=== PATIENT | male | born 1960 | race Caucasian/White ===

== ENCOUNTER 2020-09-26 09:43 | Inpatient (IN) ==
[2020-09-26] MEDS ORDERED: ALBUTEROL/IPRATROPIUM 3 ML NEB RESP TX STA (09:56)
[2020-09-26] MEDS ORDERED: FUROSEMIDE 40 MG/4 ML VIAL IV STA (09:56)
[2020-09-26] MEDS ORDERED: methylPREDNISolone SOD SUC 125 MG/2 ML VIAL IV STA (09:56)
[2020-09-26] MEDS ORDERED: cefTRIAXone 1,000 MG in SODIUM CHLORIDE 0.9% 100 ML IV STA (09:56)
[2020-09-26] MEDS ORDERED: cefTRIAXone 1,000 MG in SYRINGE 1 EACH IV STA (09:59)
[2020-09-26 10:22] LABS: ABG Base Excess 2.6 MMOL/L (-2.5-2.5); ABG HCO3 26.4 MMOL/L (20-26); ABG Oxygen Saturation 85.4 % (95-100); ABG PCO2 35.1 MM HG (35-48); ABG PH 7.474 (7.35-7.45); ABG PO2 53.1 MM HG (80-95); ABG TCO2 22.6 MMOL/L (23-27)
[2020-09-26 10:26] LABS: Basophils % 0.2 % (0.0-0.8); Hematocrit 34.2 VOL% (42.0-52.0); Hemoglobin 12.4 GM/DL (14.0-18.0); Immature Granulocytes Absolute 0.09 #; Lymphocytes # 0.3 10*3/uL (1.4-4.0); Lymphocytes % 3.4 % (21.2-54.2); Mean Corpuscular HGB Conc 36.3 GM/DL (32-36); Mean Corpuscular Volume 93.4 FL (87-102); Mean Platelet Volume 10.5 FL (9.6-12.0); Monocytes % 0.8 % (1.7-12.7); Neutrophils % 94.6 % (38.7-73.9); Platelet Count 149 T/CUMM (130-400); Red Blood Count 3.66 MC/CUMM (3.8-5.5); Red Cell Distribution Width 11.8 % (9.3-17.3); White Blood Count 8.6 T/CUMM (4-12)
[2020-09-26 10:36] LABS: INR 1.2; PT Patient Result 12.8 SECS (9.8-11.9)
[2020-09-26] MEDS ORDERED: SODIUM CHLORIDE 0.9% 100 ML IV ONE ×2 (10:39→10:48)
[2020-09-26 10:46] LABS: Anisocytosis 2+; Band Neutrophils 4 % (0-10); Lymphocytes 3 % (20-55); Macrocytosis 1+; Microcytosis 1+; Platelet Estimate Adequate; Segmented Neutrophils 90 % (50-85); Total Cells Counted 100
[2020-09-26 10:49] LABS: Albumin 2.1 G/DL (3.4-5.0); Bilirubin,Total 0.9 MG/DL (0.2-1.0); Calcium 7.7 MG/DL (8.5-10.1); Osmolality,Calculated 261.1 MOS/KG (273-304); Potassium 2.6 MMOL/L (3.5-5.1); Total Protein 5.7 G/DL (6.4-8.3)
[2020-09-26 10:59] LABS: Ferritin 1642.2 ng/ml (26-388)
[2020-09-26] MEDS ORDERED: ONDANSETRON 4 MG/2 ML VIAL IV PRN (12:54)
[2020-09-26] MEDS ORDERED: DEXTROSE 50% 25 GM/50 ML VIAL IV PRN (12:54)
[2020-09-26] MEDS ORDERED: GLUCAGON 1 MG VIAL IM PRN (12:54)
[2020-09-26] MEDS: FAMOTIDINE 20 MG/2 ML VIAL IV SCH (15:36)
[2020-09-26] MEDS: DEXAMETHASONE 4 MG/1 ML VIAL IV SCH (15:36)
[2020-09-26] MEDS: ZINC GLUCONATE 50 MG TABLET PO SCH (15:36)
[2020-09-26] MEDS: POTASSIUM CHLORIDE 20 MEQ TABLET PO PRN ×4 (15:36→21:18)
[2020-09-26] MEDS: ALBUTEROL INHALER 18 GM INH SCH (20:56)
[2020-09-26] MEDS: ENOXAPARIN 40 MG/0.4 ML SYRINGE SUBCUT SCH (21:17)
[2020-09-26] MEDS: DOXYCYCLINE HYCLATE 100 MG CAPSULE PO SCH (21:18)
[2020-09-26] MEDS: ASCORBIC ACID 500 MG TABLET PO SCH (21:18)
[2020-09-27] MEDS: FAMOTIDINE 20 MG/2 ML VIAL IV SCH ×2 (01:45→13:35)
[2020-09-27] MEDS: ALBUTEROL INHALER 18 GM INH SCH ×5 (02:09→20:43)
[2020-09-27 07:22] LABS: Basophils % 0.3 % (0.0-0.8); Hematocrit 34.5 VOL% (42.0-52.0); Hemoglobin 12.6 GM/DL (14.0-18.0); Immature Granulocytes % 0.4 %; Immature Granulocytes Absolute 0.03 #; Lymphocytes # 0.4 10*3/uL (1.4-4.0); Lymphocytes % 5.9 % (21.2-54.2); Mean Corpuscular HGB Conc 36.5 GM/DL (32-36); Mean Corpuscular Volume 93.8 FL (87-102); Mean Platelet Volume 10.9 FL (9.6-12.0); Monocytes % 0.9 % (1.7-12.7); Neutrophils % 92.5 % (38.7-73.9); Platelet Count 169 T/CUMM (130-400); Red Blood Count 3.68 MC/CUMM (3.8-5.5); Red Cell Distribution Width 11.9 % (9.3-17.3); White Blood Count 6.8 T/CUMM (4-12)
[2020-09-27 07:51] LABS: Band Neutrophils 1 % (0-10); Lymphocytes 4 % (20-55); Platelet Estimate Normal; Segmented Neutrophils 95 % (50-85); Total Cells Counted 100
[2020-09-27 07:57] LABS: Calcium 8.8 MG/DL (8.5-10.1); Osmolality,Calculated 267.5 MOS/KG (273-304); Potassium 4.3 MMOL/L (3.5-5.1)
[2020-09-27] MEDS: ASCORBIC ACID 500 MG TABLET PO SCH ×2 (08:33→21:15)
[2020-09-27] MEDS: ZINC GLUCONATE 50 MG TABLET PO SCH (08:33)
[2020-09-27] MEDS: cefTRIAXone 1,000 MG in SYRINGE 1 EACH IV SCH (08:33)
[2020-09-27] MEDS: FOLIC ACID 1 MG TABLET PO SCH (08:33)
[2020-09-27] MEDS: DOXYCYCLINE HYCLATE 100 MG CAPSULE PO SCH ×2 (08:33→21:14)
[2020-09-27] MEDS: THIAMINE 100 MG TABLET PO SCH (08:33)
[2020-09-27] MEDS ORDERED: REMDESIVIR 200 MG in SODIUM CHLORIDE 0.9% 210 ML IV ONE (09:00)
[2020-09-27 09:13] LABS: Troponin I 0.132 NG/ML (0.00-0.045)
[2020-09-27] MEDS: DEXAMETHASONE 4 MG/1 ML VIAL IV SCH (13:35)
[2020-09-27] MEDS: amLODIPine 5 MG TABLET PO SCH (13:35)
[2020-09-27] MEDS: ENOXAPARIN 40 MG/0.4 ML SYRINGE SUBCUT SCH (21:14)
[2020-09-27] MEDS: ACETAMINOPHEN 325 MG TABLET PO PRN (21:15)
[2020-09-28] MEDS: ALBUTEROL INHALER 18 GM INH SCH ×4 (01:09→19:01)
[2020-09-28] MEDS: FAMOTIDINE 20 MG/2 ML VIAL IV SCH ×2 (01:10→13:15)
[2020-09-28 07:01] LABS: Basophils % 0.4 % (0.0-0.8); Hemoglobin 12.9 GM/DL (14.0-18.0); Immature Granulocytes % 0.9 %; Immature Granulocytes Absolute 0.06 #; Lymphocytes # 0.4 10*3/uL (1.4-4.0); Lymphocytes % 5.6 % (21.2-54.2); Mean Corpuscular HGB Conc 35.8 GM/DL (32-36); Mean Platelet Volume 10.4 FL (9.6-12.0); Monocytes % 0.7 % (1.7-12.7); Neutrophils % 92.4 % (38.7-73.9); Red Blood Count 3.79 MC/CUMM (3.8-5.5); Red Cell Distribution Width 12.1 % (9.3-17.3); White Blood Count 6.8 T/CUMM (4-12)
[2020-09-28 07:02] LABS: Platelet Count 228 T/CUMM (130-400)
[2020-09-28 07:11] LABS: Calcium 8.3 MG/DL (8.5-10.1); Osmolality,Calculated 264.7 MOS/KG (273-304)
[2020-09-28 07:13] LABS: Hypochromasia Slight; Lymphocytes 8 % (20-55); Platelet Estimate Adequate; Segmented Neutrophils 91 % (50-85); Total Cells Counted 100
[2020-09-28 07:15] LABS: Troponin I 0.05 NG/ML (0.00-0.045)
[2020-09-28] MEDS: FOLIC ACID 1 MG TABLET PO SCH (08:00)
[2020-09-28] MEDS: amLODIPine 5 MG TABLET PO SCH (08:00)
[2020-09-28] MEDS: ZINC GLUCONATE 50 MG TABLET PO SCH (08:00)
[2020-09-28] MEDS: ASCORBIC ACID 500 MG TABLET PO SCH ×2 (08:00→22:01)
[2020-09-28] MEDS: cefTRIAXone 1,000 MG in SYRINGE 1 EACH IV SCH (08:00)
[2020-09-28] MEDS: DOXYCYCLINE HYCLATE 100 MG CAPSULE PO SCH ×2 (08:00→22:00)
[2020-09-28] MEDS: THIAMINE 100 MG TABLET PO SCH (08:01)
[2020-09-28] MEDS: REMDESIVIR 100 MG in SODIUM CHLORIDE 0.9% 100 ML IV SCH (09:12)
[2020-09-28] MEDS: DEXAMETHASONE 4 MG/1 ML VIAL IV SCH (13:15)
[2020-09-28] MEDS ORDERED: amLODIPine 5 MG TABLET PO ONE (13:33)
[2020-09-28] MEDS: ENOXAPARIN 40 MG/0.4 ML SYRINGE SUBCUT SCH (22:00)
[2020-09-29] MEDS: FAMOTIDINE 20 MG/2 ML VIAL IV SCH (02:34)
[2020-09-29] MEDS: ALBUTEROL INHALER 18 GM INH SCH ×4 (02:34→19:15)
[2020-09-29 05:49] LABS: Basophils % 0.2 % (0.0-0.8); Eosinophils % 0.2 % (0.00-10.9); Hematocrit 37.2 VOL% (42.0-52.0); Hemoglobin 12.4 GM/DL (14.0-18.0); Immature Granulocytes % 0.7 %; Immature Granulocytes Absolute 0.03 #; Lymphocytes # 0.4 10*3/uL (1.4-4.0); Lymphocytes % 7.7 % (21.2-54.2); Mean Corpuscular HGB Conc 33.3 GM/DL (32-36); Mean Corpuscular Volume 99.2 FL (87-102); Mean Platelet Volume 10.5 FL (9.6-12.0); Monocytes % 0.7 % (1.7-12.7); Neutrophils % 90.5 % (38.7-73.9); Platelet Count 181 T/CUMM (130-400); Red Blood Count 3.75 MC/CUMM (3.8-5.5); Red Cell Distribution Width 12.1 % (9.3-17.3); White Blood Count 4.5 T/CUMM (4-12)
[2020-09-29 06:23] LABS: Band Neutrophils 10 % (0-10); Hypochromasia 1+; Lymphocytes 5 % (20-55); Microcytosis 1+; Segmented Neutrophils 83 % (50-85); Total Cells Counted 100
[2020-09-29 06:24] LABS: Platelet Estimate Adequate
[2020-09-29 06:38] LABS: Calcium 7.9 MG/DL (8.5-10.1); Potassium 3.8 MMOL/L (3.5-5.1)
[2020-09-29] MEDS ORDERED: LORazepam 2 MG/1 ML VIAL IV PRN (09:47)
[2020-09-29] MEDS: THIAMINE 100 MG TABLET PO SCH (09:52)
[2020-09-29] MEDS: ZINC GLUCONATE 50 MG TABLET PO SCH (09:52)
[2020-09-29] MEDS: FOLIC ACID 1 MG TABLET PO SCH (09:52)
[2020-09-29] MEDS: REMDESIVIR 100 MG in SODIUM CHLORIDE 0.9% 100 ML IV SCH (09:52)
[2020-09-29] MEDS: cefTRIAXone 1,000 MG in SYRINGE 1 EACH IV SCH (09:52)
[2020-09-29] MEDS: ASCORBIC ACID 500 MG TABLET PO SCH ×2 (09:52→20:17)
[2020-09-29] MEDS: amLODIPine 10 MG TABLET PO SCH (09:52)
[2020-09-29] MEDS: DOXYCYCLINE HYCLATE 100 MG CAPSULE PO SCH ×2 (09:52→20:17)
[2020-09-29] MEDS ORDERED: VANCOMYCIN INJ 1,250 MG in SODIUM CHLORIDE 0.9% 250 ML IV SCH (11:00)
[2020-09-29] MEDS: DEXAMETHASONE 4 MG/1 ML VIAL IV SCH (15:01)
[2020-09-29] MEDS: FAMOTIDINE 20 MG TABLET PO SCH (20:17)
[2020-09-29] MEDS: ENOXAPARIN 40 MG/0.4 ML SYRINGE SUBCUT SCH (20:17)
[2020-09-29] MEDS ORDERED: ZALEPLON 5 MG CAPSULE PO PRN (21:02)
[2020-09-30] MEDS: ALBUTEROL INHALER 18 GM INH SCH ×4 (00:15→18:29)
[2020-09-30 05:49] LABS: Basophils % 0.3 % (0.0-0.8); Hematocrit 35.8 VOL% (42.0-52.0); Hemoglobin 12.5 GM/DL (14.0-18.0); Immature Granulocytes % 0.5 %; Immature Granulocytes Absolute 0.02 #; Lymphocytes # 0.3 10*3/uL (1.4-4.0); Lymphocytes % 6.7 % (21.2-54.2); Mean Corpuscular HGB Conc 34.9 GM/DL (32-36); Mean Corpuscular Volume 97.5 FL (87-102); Mean Platelet Volume 10.7 FL (9.6-12.0); Monocytes % 0.8 % (1.7-12.7); Neutrophils % 91.7 % (38.7-73.9); Platelet Count 150 T/CUMM (130-400); Red Blood Count 3.67 MC/CUMM (3.8-5.5); Red Cell Distribution Width 11.9 % (9.3-17.3); White Blood Count 3.7 T/CUMM (4-12)
[2020-09-30 06:05] LABS: Albumin 1.8 G/DL (3.4-5.0); Bilirubin,Total 1.2 MG/DL (0.2-1.0); Calcium 7.9 MG/DL (8.5-10.1); Osmolality,Calculated 269.2 MOS/KG (273-304); Potassium 3.8 MMOL/L (3.5-5.1); Total Protein 6.2 G/DL (6.4-8.3)
[2020-09-30 06:30] LABS: Band Neutrophils 7 % (0-10); Hypochromasia 1+; Lymphocytes 3 % (20-55); Macrocytosis Slight; Platelet Estimate Adequate; Segmented Neutrophils 89 % (50-85); Total Cells Counted 100
[2020-09-30] MEDS: methylPREDNISolone SOD SUC 40 MG/1 ML VIAL IV SCH ×2 (09:01→16:06)
[2020-09-30] MEDS: LACTULOSE 20 GM/30 ML UDCUP PO SCH ×2 (09:01→09:25)
[2020-09-30] MEDS: cefTRIAXone 1,000 MG in SYRINGE 1 EACH IV SCH (09:01)
[2020-09-30] MEDS: ZINC GLUCONATE 50 MG TABLET PO SCH (09:02)
[2020-09-30] MEDS: THIAMINE 100 MG TABLET PO SCH (09:02)
[2020-09-30] MEDS: FOLIC ACID 1 MG TABLET PO SCH (09:02)
[2020-09-30] MEDS: ASCORBIC ACID 500 MG TABLET PO SCH ×2 (09:02→20:43)
[2020-09-30] MEDS: MULTIVITAMIN (BEROCCA) TABLET PO SCH (09:02)
[2020-09-30] MEDS: DOXYCYCLINE HYCLATE 100 MG CAPSULE PO SCH ×2 (09:02→20:43)
[2020-09-30] MEDS: FAMOTIDINE 20 MG TABLET PO SCH ×2 (09:02→20:43)
[2020-09-30] MEDS: amLODIPine 10 MG TABLET PO SCH (09:02)
[2020-09-30] MEDS: REMDESIVIR 100 MG in SODIUM CHLORIDE 0.9% 100 ML IV SCH (09:33)
[2020-09-30] MEDS: ENOXAPARIN 40 MG/0.4 ML SYRINGE SUBCUT SCH (20:43)
[2020-10-01] MEDS: methylPREDNISolone SOD SUC 40 MG/1 ML VIAL IV SCH ×4 (00:50→22:35)
[2020-10-01] MEDS: ALBUTEROL INHALER 18 GM INH SCH ×4 (00:50→19:05)
[2020-10-01] MEDS: cefTRIAXone 1,000 MG in SYRINGE 1 EACH IV SCH (08:14)
[2020-10-01] MEDS: ZINC GLUCONATE 50 MG TABLET PO SCH (08:15)
[2020-10-01] MEDS: LACTULOSE 20 GM/30 ML UDCUP PO SCH ×2 (08:15→13:52)
[2020-10-01] MEDS: DOXYCYCLINE HYCLATE 100 MG CAPSULE PO SCH (08:15)
[2020-10-01] MEDS: THIAMINE 100 MG TABLET PO SCH (08:15)
[2020-10-01] MEDS: MULTIVITAMIN (BEROCCA) TABLET PO SCH (08:15)
[2020-10-01] MEDS: FOLIC ACID 1 MG TABLET PO SCH (08:15)
[2020-10-01] MEDS: FAMOTIDINE 20 MG TABLET PO SCH ×2 (08:15→20:24)
[2020-10-01] MEDS: ASCORBIC ACID 500 MG TABLET PO SCH ×2 (08:15→20:24)
[2020-10-01] MEDS: amLODIPine 10 MG TABLET PO SCH (08:15)
[2020-10-01] MEDS: REMDESIVIR 100 MG in SODIUM CHLORIDE 0.9% 100 ML IV SCH (08:17)
[2020-10-01] MEDS: ENOXAPARIN 40 MG/0.4 ML SYRINGE SUBCUT SCH (20:23)
[2020-10-01] MEDS: diphenhydrAMINE CAP 25 MG CAPSULE PO PRN (20:24)
[2020-10-01] MEDS: MELATONIN 3 MG TABLET PO PRN (20:24)
[2020-10-02] MEDS: ALBUTEROL INHALER 18 GM INH SCH ×4 (00:05→20:04)
[2020-10-02 05:40] LABS: Basophils % 0.5 % (0.0-0.8); Hematocrit 36.4 VOL% (42.0-52.0); Hemoglobin 12.6 GM/DL (14.0-18.0); Immature Granulocytes % 0.7 %; Immature Granulocytes Absolute 0.04 #; Lymphocytes # 0.3 10*3/uL (1.4-4.0); Lymphocytes % 4.7 % (21.2-54.2); Mean Corpuscular HGB Conc 34.6 GM/DL (32-36); Mean Corpuscular Volume 97.1 FL (87-102); Mean Platelet Volume 10.7 FL (9.6-12.0); Monocytes % 0.8 % (1.7-12.7); Neutrophils % 93.3 % (38.7-73.9); Platelet Count 147 T/CUMM (130-400); Red Blood Count 3.75 MC/CUMM (3.8-5.5); Red Cell Distribution Width 12.1 % (9.3-17.3)
[2020-10-02 05:53] LABS: Calcium 7.9 MG/DL (8.5-10.1); Ferritin 911.2 ng/ml (26-388); Osmolality,Calculated 276.1 MOS/KG (273-304)
[2020-10-02 06:11] LABS: Band Neutrophils 3 % (0-10); Hypochromasia 1+; Lymphocytes 2 % (20-55); Macrocytosis Slight; Platelet Estimate Adequate; Segmented Neutrophils 94 % (50-85); Total Cells Counted 100
[2020-10-02] MEDS: ASCORBIC ACID 500 MG TABLET PO SCH ×2 (08:11→20:05)
[2020-10-02] MEDS: FAMOTIDINE 20 MG TABLET PO SCH ×2 (08:11→20:05)
[2020-10-02] MEDS: THIAMINE 100 MG TABLET PO SCH (08:11)
[2020-10-02] MEDS: amLODIPine 10 MG TABLET PO SCH (08:11)
[2020-10-02] MEDS: MULTIVITAMIN (BEROCCA) TABLET PO SCH (08:11)
[2020-10-02] MEDS: FOLIC ACID 1 MG TABLET PO SCH (08:12)
[2020-10-02] MEDS: ZINC GLUCONATE 50 MG TABLET PO SCH (08:12)
[2020-10-02] MEDS: LACTULOSE 20 GM/30 ML UDCUP PO SCH (08:58)
[2020-10-02] MEDS: ENOXAPARIN 40 MG/0.4 ML SYRINGE SUBCUT SCH ×2 (09:21→20:04)
[2020-10-02] MEDS: methylPREDNISolone SOD SUC 40 MG/1 ML VIAL IV SCH ×2 (09:21→20:04)
[2020-10-02] MEDS: MELATONIN 3 MG TABLET PO PRN (20:05)
[2020-10-02] MEDS: diphenhydrAMINE CAP 25 MG CAPSULE PO PRN (20:05)
[2020-10-03] MEDS: ALBUTEROL INHALER 18 GM INH SCH ×4 (01:25→19:20)
[2020-10-03 06:28] LABS: Osmolality,Calculated 271.2 MOS/KG (273-304); Potassium 4.4 MMOL/L (3.5-5.1)
[2020-10-03] MEDS: ENOXAPARIN 40 MG/0.4 ML SYRINGE SUBCUT SCH (08:49)
[2020-10-03] MEDS: amLODIPine 10 MG TABLET PO SCH (08:50)
[2020-10-03] MEDS: ASCORBIC ACID 500 MG TABLET PO SCH ×2 (08:50→20:40)
[2020-10-03] MEDS: methylPREDNISolone SOD SUC 40 MG/1 ML VIAL IV SCH ×2 (08:50→20:40)
[2020-10-03] MEDS: FAMOTIDINE 20 MG TABLET PO SCH ×2 (08:50→20:40)
[2020-10-03] MEDS: MULTIVITAMIN (BEROCCA) TABLET PO SCH (08:50)
[2020-10-03] MEDS: FOLIC ACID 1 MG TABLET PO SCH (08:51)
[2020-10-03] MEDS: ZINC GLUCONATE 50 MG TABLET PO SCH (08:51)
[2020-10-03] MEDS: THIAMINE 100 MG TABLET PO SCH (08:52)
[2020-10-03] MEDS: LACTULOSE 20 GM/30 ML UDCUP PO SCH (09:25)
[2020-10-03] MEDS ORDERED: ENOXAPARIN 80 MG/0.8 ML SYRINGE SUBCUT SCH (10:00)
[2020-10-03] MEDS ORDERED: ENOXAPARIN 40 MG/0.4 ML SYRINGE SUBCUT ONE (10:34)
[2020-10-03] MEDS: ENOXAPARIN 80 MG/0.8 ML SYRINGE SUBCUT SCH (21:02)
[2020-10-04] MEDS: ALBUTEROL INHALER 18 GM INH SCH ×4 (00:12→19:49)
[2020-10-04 04:13] LABS: Basophils % 0.1 % (0.0-0.8); Hematocrit 33.9 VOL% (42.0-52.0); Hemoglobin 11.5 GM/DL (14.0-18.0); Immature Granulocytes % 2.7 %; Immature Granulocytes Absolute 0.24 #; Lymphocytes # 0.3 10*3/uL (1.4-4.0); Lymphocytes % 3.4 % (21.2-54.2); Mean Corpuscular HGB Conc 33.9 GM/DL (32-36); Mean Corpuscular Volume 96.9 FL (87-102); Mean Platelet Volume 10.4 FL (9.6-12.0); Monocytes % 0.3 % (1.7-12.7); Neutrophils % 93.5 % (38.7-73.9); Platelet Count 171 T/CUMM (130-400); Red Cell Distribution Width 12.1 % (9.3-17.3)
[2020-10-04 04:40] LABS: Albumin 1.7 G/DL (3.4-5.0); Bilirubin,Total 0.4 MG/DL (0.2-1.0); Calcium 7.8 MG/DL (8.5-10.1); Osmolality,Calculated 275.1 MOS/KG (273-304); Potassium 4.6 MMOL/L (3.5-5.1); Total Protein 5.7 G/DL (6.4-8.3)
[2020-10-04 05:00] LABS: Lymphocytes 4 % (20-55); Segmented Neutrophils 96 % (50-85); Total Cells Counted 100
[2020-10-04 05:01] LABS: Hypochromasia 1+; Platelet Estimate Normal
[2020-10-04] MEDS: methylPREDNISolone SOD SUC 40 MG/1 ML VIAL IV SCH ×2 (09:29→21:10)
[2020-10-04] MEDS: ZINC GLUCONATE 50 MG TABLET PO SCH (09:29)
[2020-10-04] MEDS: amLODIPine 10 MG TABLET PO SCH (09:29)
[2020-10-04] MEDS: ASCORBIC ACID 500 MG TABLET PO SCH ×2 (09:29→21:10)
[2020-10-04] MEDS: MULTIVITAMIN (BEROCCA) TABLET PO SCH (09:29)
[2020-10-04] MEDS: FOLIC ACID 1 MG TABLET PO SCH (09:30)
[2020-10-04] MEDS: FAMOTIDINE 20 MG TABLET PO SCH ×2 (09:30→21:10)
[2020-10-04] MEDS: ENOXAPARIN 80 MG/0.8 ML SYRINGE SUBCUT SCH ×2 (09:30→21:10)
[2020-10-04] MEDS: THIAMINE 100 MG TABLET PO SCH (09:30)
[2020-10-04] MEDS: LACTULOSE 20 GM/30 ML UDCUP PO SCH (09:41)
[2020-10-04] MEDS: MELATONIN 3 MG TABLET PO PRN (21:10)
[2020-10-05] MEDS: ALBUTEROL INHALER 18 GM INH SCH ×4 (00:40→19:30)
[2020-10-05] MEDS: diphenhydrAMINE CAP 25 MG CAPSULE PO PRN (00:43)
[2020-10-05 07:14] LABS: Basophils % 0.4 % (0.0-0.8); Hematocrit 35.6 VOL% (42.0-52.0); Hemoglobin 12.5 GM/DL (14.0-18.0); Immature Granulocytes % 4.4 %; Immature Granulocytes Absolute 0.46 #; Lymphocytes # 0.4 10*3/uL (1.4-4.0); Lymphocytes % 3.8 % (21.2-54.2); Mean Corpuscular HGB Conc 35.1 GM/DL (32-36); Mean Corpuscular Volume 95.2 FL (87-102); Mean Platelet Volume 10.3 FL (9.6-12.0); Monocytes % 0.6 % (1.7-12.7); Neutrophils % 90.8 % (38.7-73.9); Platelet Count 227 T/CUMM (130-400); Red Blood Count 3.74 MC/CUMM (3.8-5.5); Red Cell Distribution Width 12.2 % (9.3-17.3); White Blood Count 10.4 T/CUMM (4-12)
[2020-10-05 07:29] LABS: Albumin 1.7 G/DL (3.4-5.0); Bilirubin,Total 0.4 MG/DL (0.2-1.0); Osmolality,Calculated 273.1 MOS/KG (273-304); Potassium 4.6 MMOL/L (3.5-5.1); Total Protein 5.7 G/DL (6.4-8.3)
[2020-10-05 08:02] LABS: Anisocytosis 2+; Band Neutrophils 7 % (0-10); Lymphocytes 5 % (20-55); Macrocytosis 1+; Myelocytes 2 %; Platelet Estimate Normal; Segmented Neutrophils 84 % (50-85); Total Cells Counted 100
[2020-10-05] MEDS: methylPREDNISolone SOD SUC 40 MG/1 ML VIAL IV SCH ×2 (09:21→21:30)
[2020-10-05] MEDS: ASCORBIC ACID 500 MG TABLET PO SCH ×2 (09:59→21:30)
[2020-10-05] MEDS: MULTIVITAMIN (BEROCCA) TABLET PO SCH (09:59)
[2020-10-05] MEDS: FOLIC ACID 1 MG TABLET PO SCH (09:59)
[2020-10-05] MEDS: THIAMINE 100 MG TABLET PO SCH (09:59)
[2020-10-05] MEDS: ZINC GLUCONATE 50 MG TABLET PO SCH (09:59)
[2020-10-05] MEDS: FAMOTIDINE 20 MG TABLET PO SCH ×2 (09:59→21:30)
[2020-10-05] MEDS: amLODIPine 10 MG TABLET PO SCH (10:00)
[2020-10-05] MEDS: ENOXAPARIN 80 MG/0.8 ML SYRINGE SUBCUT SCH ×2 (10:00→21:30)
[2020-10-05] MEDS: LACTULOSE 20 GM/30 ML UDCUP PO SCH (11:29)
[2020-10-05 16:04] LABS: PT Patient Result 11.1 SECS (9.8-11.9)
[2020-10-05] MEDS ORDERED: WARFARIN 5 MG TABLET PO SCH (18:00)
[2020-10-06] MEDS: ALBUTEROL INHALER 18 GM INH SCH ×4 (00:43→20:15)
[2020-10-06 06:34] LABS: Basophils % 0.3 % (0.0-0.8); Eosinophils % 0.1 % (0.00-10.9); Hematocrit 36.1 VOL% (42.0-52.0); Hemoglobin 12.3 GM/DL (14.0-18.0); Immature Granulocytes % 5.6 %; Immature Granulocytes Absolute 0.61 #; Lymphocytes # 0.4 10*3/uL (1.4-4.0); Lymphocytes % 3.7 % (21.2-54.2); Mean Corpuscular HGB Conc 34.1 GM/DL (32-36); Mean Corpuscular Volume 98.6 FL (87-102); Mean Platelet Volume 10.4 FL (9.6-12.0); Monocytes % 0.7 % (1.7-12.7); Neutrophils % 89.6 % (38.7-73.9); Platelet Count 293 T/CUMM (130-400); Red Blood Count 3.66 MC/CUMM (3.8-5.5); Red Cell Distribution Width 12.2 % (9.3-17.3)
[2020-10-06 06:48] LABS: PT Patient Result 10.8 SECS (9.8-11.9)
[2020-10-06 06:53] LABS: Albumin 1.8 G/DL (3.4-5.0); Bilirubin,Total 0.6 MG/DL (0.2-1.0); Calcium 7.8 MG/DL (8.5-10.1); Osmolality,Calculated 275.1 MOS/KG (273-304); Potassium 4.6 MMOL/L (3.5-5.1); Total Protein 5.5 G/DL (6.4-8.3)
[2020-10-06 07:12] LABS: Lymphocytes 2 % (20-55); Platelet Estimate Adequate; Segmented Neutrophils 98 % (50-85); Total Cells Counted 100
[2020-10-06] MEDS: FAMOTIDINE 20 MG TABLET PO SCH ×2 (09:22→22:19)
[2020-10-06] MEDS: amLODIPine 10 MG TABLET PO SCH (09:22)
[2020-10-06] MEDS: THIAMINE 100 MG TABLET PO SCH (09:22)
[2020-10-06] MEDS: ZINC GLUCONATE 50 MG TABLET PO SCH (09:22)
[2020-10-06] MEDS: ASCORBIC ACID 500 MG TABLET PO SCH ×2 (09:22→22:19)
[2020-10-06] MEDS: LACTULOSE 20 GM/30 ML UDCUP PO SCH (09:22)
[2020-10-06] MEDS: MULTIVITAMIN (BEROCCA) TABLET PO SCH (09:22)
[2020-10-06] MEDS: FOLIC ACID 1 MG TABLET PO SCH (09:22)
[2020-10-06] MEDS: methylPREDNISolone SOD SUC 40 MG/1 ML VIAL IV SCH ×2 (09:23→22:19)
[2020-10-06] MEDS: ENOXAPARIN 80 MG/0.8 ML SYRINGE SUBCUT SCH ×2 (09:24→22:19)
[2020-10-06] MEDS: WARFARIN 10 MG TABLET PO SCH ×2 (19:00→19:08)
[2020-10-06] MEDS: WARFARIN 5 MG TABLET PO SCH (19:08)
[2020-10-06] MEDS: MELATONIN 3 MG TABLET PO PRN (22:20)
[2020-10-06] MEDS: ACETAMINOPHEN 325 MG TABLET PO PRN (22:20)
[2020-10-07] MEDS: ALBUTEROL INHALER 18 GM INH SCH ×4 (00:35→18:04)
[2020-10-07 06:12] LABS: Basophils # 0.1 10*3/uL (0.0-0.2); Basophils % 0.5 % (0.0-0.8); Eosinophils % 0.1 % (0.00-10.9); Hematocrit 38.1 VOL% (42.0-52.0); Hemoglobin 13.2 GM/DL (14.0-18.0); Immature Granulocytes % 4.7 %; Immature Granulocytes Absolute 0.52 #; Lymphocytes # 0.4 10*3/uL (1.4-4.0); Lymphocytes % 3.6 % (21.2-54.2); Mean Corpuscular HGB Conc 34.6 GM/DL (32-36); Mean Platelet Volume 9.9 FL (9.6-12.0); Monocytes % 0.7 % (1.7-12.7); Neutrophils % 90.4 % (38.7-73.9); Platelet Count 277 T/CUMM (130-400); Red Blood Count 3.97 MC/CUMM (3.8-5.5); Red Cell Distribution Width 12.2 % (9.3-17.3); White Blood Count 11.1 T/CUMM (4-12)
[2020-10-07 06:40] LABS: Lymphocytes 3 % (20-55); Platelet Estimate Adequate; Segmented Neutrophils 94 % (50-85); Total Cells Counted 100
[2020-10-07 06:48] LABS: Albumin 1.8 G/DL (3.4-5.0); Bilirubin,Total 0.6 MG/DL (0.2-1.0); Calcium 7.9 MG/DL (8.5-10.1); Potassium 4.7 MMOL/L (3.5-5.1); Total Protein 5.8 G/DL (6.4-8.3)
[2020-10-07] MEDS: MULTIVITAMIN (BEROCCA) TABLET PO SCH (09:03)
[2020-10-07] MEDS: ASCORBIC ACID 500 MG TABLET PO SCH ×2 (09:03→21:37)
[2020-10-07] MEDS: amLODIPine 10 MG TABLET PO SCH (09:03)
[2020-10-07] MEDS: ZINC GLUCONATE 50 MG TABLET PO SCH (09:03)
[2020-10-07] MEDS: LACTULOSE 20 GM/30 ML UDCUP PO SCH (09:03)
[2020-10-07] MEDS: FAMOTIDINE 20 MG TABLET PO SCH ×2 (09:03→21:36)
[2020-10-07] MEDS: methylPREDNISolone SOD SUC 40 MG/1 ML VIAL IV SCH ×2 (09:03→21:36)
[2020-10-07] MEDS: THIAMINE 100 MG TABLET PO SCH (09:03)
[2020-10-07] MEDS: FOLIC ACID 1 MG TABLET PO SCH (09:04)
[2020-10-07 09:21] LABS: INR 1.2; PT Patient Result 12.4 SECS (9.8-11.9)
[2020-10-07] MEDS: ENOXAPARIN 80 MG/0.8 ML SYRINGE SUBCUT SCH ×2 (09:55→21:37)
[2020-10-07] MEDS: WARFARIN 5 MG TABLET PO SCH (17:20)
[2020-10-07] MEDS: MELATONIN 3 MG TABLET PO PRN (21:39)
[2020-10-07] MEDS: ACETAMINOPHEN 325 MG TABLET PO PRN (21:39)
[2020-10-08] MEDS: ALBUTEROL INHALER 18 GM INH SCH ×4 (01:29→21:46)
[2020-10-08 06:23] LABS: Basophils % 0.3 % (0.0-0.8); Eosinophils # 0.1 10*3/uL (0.0-0.87); Eosinophils % 0.6 % (0.00-10.9); Hematocrit 37.9 VOL% (42.0-52.0); Hemoglobin 13.3 GM/DL (14.0-18.0); Immature Granulocytes % 4.7 %; Immature Granulocytes Absolute 0.59 #; Lymphocytes # 0.9 10*3/uL (1.4-4.0); Lymphocytes % 7.5 % (21.2-54.2); Mean Corpuscular HGB Conc 35.1 GM/DL (32-36); Mean Corpuscular Volume 96.4 FL (87-102); Mean Platelet Volume 9.8 FL (9.6-12.0); Monocytes % 0.9 % (1.7-12.7); Platelet Count 316 T/CUMM (130-400); Red Blood Count 3.93 MC/CUMM (3.8-5.5); Red Cell Distribution Width 12.3 % (9.3-17.3); White Blood Count 12.5 T/CUMM (4-12)
[2020-10-08 06:37] LABS: INR 1.9; PT Patient Result 19.9 SECS (9.8-11.9)
[2020-10-08 06:48] LABS: Albumin 1.8 G/DL (3.4-5.0); Bilirubin,Total 1.1 MG/DL (0.2-1.0); Calcium 7.8 MG/DL (8.5-10.1); Osmolality,Calculated 278.7 MOS/KG (273-304); Potassium 4.6 MMOL/L (3.5-5.1); Total Protein 5.6 G/DL (6.4-8.3)
[2020-10-08 06:50] LABS: Eosinophils 1 % (0-10); Hypochromasia Slight; Lymphocytes 6 % (20-55); Microcytosis Slight; Platelet Estimate Adequate; Segmented Neutrophils 93 % (50-85); Total Cells Counted 100
[2020-10-08] MEDS: FAMOTIDINE 20 MG TABLET PO SCH ×2 (10:07→21:35)
[2020-10-08] MEDS: ASCORBIC ACID 500 MG TABLET PO SCH ×2 (10:07→21:35)
[2020-10-08] MEDS: ENOXAPARIN 80 MG/0.8 ML SYRINGE SUBCUT SCH ×2 (10:07→21:35)
[2020-10-08] MEDS: ZINC GLUCONATE 50 MG TABLET PO SCH (10:08)
[2020-10-08] MEDS: FOLIC ACID 1 MG TABLET PO SCH (10:08)
[2020-10-08] MEDS: THIAMINE 100 MG TABLET PO SCH (10:08)
[2020-10-08] MEDS: MULTIVITAMIN (BEROCCA) TABLET PO SCH (10:08)
[2020-10-08] MEDS: amLODIPine 10 MG TABLET PO SCH (10:08)
[2020-10-08] MEDS: methylPREDNISolone SOD SUC 40 MG/1 ML VIAL IV SCH ×2 (10:12→21:35)
[2020-10-08] MEDS: LACTULOSE 20 GM/30 ML UDCUP PO SCH (10:24)
[2020-10-08] MEDS: WARFARIN 5 MG TABLET PO SCH (18:46)
[2020-10-08] MEDS: MELATONIN 3 MG TABLET PO PRN (21:34)
[2020-10-08] MEDS: ACETAMINOPHEN 325 MG TABLET PO PRN (21:34)
[2020-10-08] MEDS: ZALEPLON 5 MG CAPSULE PO PRN (21:34)
[2020-10-08] MEDS: DESITIN 4OZ/NYSTATIN 15 GRAM MIXTURE PASTE TOP SCH (21:35)
[2020-10-09 05:12] LABS: Basophils % 0.2 % (0.0-0.8); Eosinophils % 0.1 % (0.00-10.9); Hematocrit 38.6 VOL% (42.0-52.0); Hemoglobin 12.7 GM/DL (14.0-18.0); Immature Granulocytes % 3.9 %; Immature Granulocytes Absolute 0.52 #; Lymphocytes # 0.6 10*3/uL (1.4-4.0); Lymphocytes % 4.5 % (21.2-54.2); Mean Corpuscular HGB Conc 32.9 GM/DL (32-36); Mean Platelet Volume 10.3 FL (9.6-12.0); Monocytes % 0.6 % (1.7-12.7); Neutrophils % 90.7 % (38.7-73.9); Platelet Count 319 T/CUMM (130-400); Red Blood Count 3.82 MC/CUMM (3.8-5.5); Red Cell Distribution Width 12.3 % (9.3-17.3); White Blood Count 13.3 T/CUMM (4-12)
[2020-10-09 05:25] LABS: INR 2.9
[2020-10-09 05:26] LABS: PT Patient Result 29.1 SECS (9.8-11.9)
[2020-10-09 05:31] LABS: Osmolality,Calculated 277.8 MOS/KG (273-304); Potassium 4.7 MMOL/L (3.5-5.1)
[2020-10-09 05:40] LABS: Anisocytosis Slight; Band Neutrophils 9 % (0-10); Lymphocytes 5 % (20-55); Platelet Estimate Normal; Segmented Neutrophils 86 % (50-85); Total Cells Counted 100
[2020-10-09 05:41] LABS: Macrocytosis Slight
[2020-10-09] MEDS: ALBUTEROL INHALER 18 GM INH SCH ×4 (05:54→20:45)
[2020-10-09] MEDS: MULTIVITAMIN (BEROCCA) TABLET PO SCH (09:49)
[2020-10-09] MEDS: methylPREDNISolone SOD SUC 40 MG/1 ML VIAL IV SCH ×2 (09:49→20:45)
[2020-10-09] MEDS: ZINC GLUCONATE 50 MG TABLET PO SCH (09:49)
[2020-10-09] MEDS: ASCORBIC ACID 500 MG TABLET PO SCH ×2 (09:49→20:45)
[2020-10-09] MEDS: FOLIC ACID 1 MG TABLET PO SCH (09:49)
[2020-10-09] MEDS: FAMOTIDINE 20 MG TABLET PO SCH ×2 (09:50→20:45)
[2020-10-09] MEDS: THIAMINE 100 MG TABLET PO SCH (09:50)
[2020-10-09] MEDS: DESITIN 4OZ/NYSTATIN 15 GRAM MIXTURE PASTE TOP SCH ×2 (12:45→20:45)
[2020-10-09] MEDS: LACTULOSE 20 GM/30 ML UDCUP PO SCH (12:45)
[2020-10-09] MEDS: amLODIPine 10 MG TABLET PO SCH (12:45)
[2020-10-09] MEDS: WARFARIN 5 MG TABLET PO SCH (17:04)
[2020-10-10] MEDS: ALBUTEROL INHALER 18 GM INH SCH ×4 (00:13→20:58)
[2020-10-10 05:25] LABS: Basophils % 0.3 % (0.0-0.8); Eosinophils % 0.1 % (0.00-10.9); Hematocrit 35.1 VOL% (42.0-52.0); Hemoglobin 11.8 GM/DL (14.0-18.0); Immature Granulocytes % 4.2 %; Immature Granulocytes Absolute 0.56 #; Lymphocytes # 0.6 10*3/uL (1.4-4.0); Lymphocytes % 4.6 % (21.2-54.2); Mean Corpuscular HGB Conc 33.6 GM/DL (32-36); Mean Platelet Volume 9.6 FL (9.6-12.0); Monocytes % 0.7 % (1.7-12.7); Neutrophils % 90.1 % (38.7-73.9); Platelet Count 296 T/CUMM (130-400); Red Blood Count 3.58 MC/CUMM (3.8-5.5); Red Cell Distribution Width 12.2 % (9.3-17.3); White Blood Count 13.4 T/CUMM (4-12)
[2020-10-10 05:32] LABS: INR 3.5; PT Patient Result 34.7 SECS (9.8-11.9)
[2020-10-10 05:46] LABS: Calcium 7.9 MG/DL (8.5-10.1); Osmolality,Calculated 274.1 MOS/KG (273-304); Potassium 4.4 MMOL/L (3.5-5.1)
[2020-10-10 06:14] LABS: Band Neutrophils 3 % (0-10); Eosinophils 1 % (0-10); Lymphocytes 4 % (20-55); Segmented Neutrophils 91 % (50-85); Total Cells Counted 100
[2020-10-10 06:15] LABS: Hypochromasia Slight
[2020-10-10 06:16] LABS: Microcytosis 1+
[2020-10-10] MEDS: ASCORBIC ACID 500 MG TABLET PO SCH ×2 (08:22→20:58)
[2020-10-10] MEDS: MULTIVITAMIN (BEROCCA) TABLET PO SCH (08:22)
[2020-10-10] MEDS: LACTULOSE 20 GM/30 ML UDCUP PO SCH (08:22)
[2020-10-10] MEDS: ZINC GLUCONATE 50 MG TABLET PO SCH (08:22)
[2020-10-10] MEDS: THIAMINE 100 MG TABLET PO SCH (08:22)
[2020-10-10] MEDS: amLODIPine 10 MG TABLET PO SCH (08:22)
[2020-10-10] MEDS: FOLIC ACID 1 MG TABLET PO SCH (08:23)
[2020-10-10] MEDS: DESITIN 4OZ/NYSTATIN 15 GRAM MIXTURE PASTE TOP SCH ×2 (08:35→20:59)
[2020-10-10] MEDS: FAMOTIDINE 20 MG TABLET PO SCH ×2 (08:35→20:59)
[2020-10-10] MEDS: MELATONIN 3 MG TABLET PO PRN (20:59)
[2020-10-10] MEDS: ZALEPLON 5 MG CAPSULE PO PRN (20:59)
[2020-10-11] MEDS: ALBUTEROL INHALER 18 GM INH SCH ×4 (00:16→20:50)
[2020-10-11 06:03] LABS: Basophils % 0.2 % (0.0-0.8); Eosinophils # 0.1 10*3/uL (0.0-0.87); Eosinophils % 0.6 % (0.00-10.9); Hematocrit 35.9 VOL% (42.0-52.0); Hemoglobin 11.9 GM/DL (14.0-18.0); Immature Granulocytes Absolute 0.48 #; Lymphocytes # 0.8 10*3/uL (1.4-4.0); Lymphocytes % 4.8 % (21.2-54.2); Mean Corpuscular HGB Conc 33.1 GM/DL (32-36); Mean Corpuscular Volume 100.3 FL (87-102); Mean Platelet Volume 9.2 FL (9.6-12.0); Monocytes % 0.7 % (1.7-12.7); Neutrophils % 90.7 % (38.7-73.9); Platelet Count 271 T/CUMM (130-400); Red Blood Count 3.58 MC/CUMM (3.8-5.5); Red Cell Distribution Width 12.4 % (9.3-17.3); White Blood Count 16.1 T/CUMM (4-12)
[2020-10-11 06:14] LABS: INR 2.3; PT Patient Result 23.4 SECS (9.8-11.9)
[2020-10-11 06:41] LABS: Eosinophils 2 % (0-10); Lymphocytes 7 % (20-55); Platelet Estimate Adequate; Segmented Neutrophils 91 % (50-85); Total Cells Counted 100
[2020-10-11 06:42] LABS: Hypochromasia Slight; Microcytosis Slight
[2020-10-11] MEDS: MULTIVITAMIN (BEROCCA) TABLET PO SCH ×2 (07:53→08:00)
[2020-10-11] MEDS: THIAMINE 100 MG TABLET PO SCH ×2 (07:53→08:02)
[2020-10-11] MEDS: amLODIPine 10 MG TABLET PO SCH ×2 (07:54→08:00)
[2020-10-11] MEDS: FOLIC ACID 1 MG TABLET PO SCH ×2 (07:54→08:00)
[2020-10-11] MEDS: ASCORBIC ACID 500 MG TABLET PO SCH ×3 (07:54→20:50)
[2020-10-11] MEDS: ZINC GLUCONATE 50 MG TABLET PO SCH ×2 (07:54→08:02)
[2020-10-11] MEDS: LACTULOSE 20 GM/30 ML UDCUP PO SCH (08:00)
[2020-10-11] MEDS: FAMOTIDINE 20 MG TABLET PO SCH ×2 (08:01→20:50)
[2020-10-11] MEDS: DESITIN 4OZ/NYSTATIN 15 GRAM MIXTURE PASTE TOP SCH ×2 (08:01→20:50)
[2020-10-11] MEDS: WARFARIN 5 MG TABLET PO SCH (17:58)
[2020-10-12] MEDS: ALBUTEROL INHALER 18 GM INH SCH ×4 (02:05→20:23)
[2020-10-12 05:38] LABS: PT Patient Result 20.8 SECS (9.8-11.9)
[2020-10-12] MEDS: MULTIVITAMIN (BEROCCA) TABLET PO SCH (08:19)
[2020-10-12] MEDS: FOLIC ACID 1 MG TABLET PO SCH (08:20)
[2020-10-12] MEDS: THIAMINE 100 MG TABLET PO SCH (08:20)
[2020-10-12] MEDS: LACTULOSE 20 GM/30 ML UDCUP PO SCH (08:20)
[2020-10-12] MEDS: FAMOTIDINE 20 MG TABLET PO SCH ×2 (08:20→20:35)
[2020-10-12] MEDS: ASCORBIC ACID 500 MG TABLET PO SCH ×2 (08:20→20:35)
[2020-10-12] MEDS: ZINC GLUCONATE 50 MG TABLET PO SCH (08:20)
[2020-10-12] MEDS: amLODIPine 10 MG TABLET PO SCH (08:20)
[2020-10-12] MEDS: DESITIN 4OZ/NYSTATIN 15 GRAM MIXTURE PASTE TOP SCH ×2 (08:21→20:35)
[2020-10-12] MEDS: ACETAMINOPHEN 325 MG TABLET PO PRN (08:23)
[2020-10-12] MEDS: WARFARIN 5 MG TABLET PO SCH (18:19)
[2020-10-12] MEDS: SODIUM CHLORIDE 0.9% 1,000 ML IV SCH (20:23)
[2020-10-12] MEDS: ZALEPLON 5 MG CAPSULE PO PRN (20:36)
[2020-10-12] MEDS: MELATONIN 3 MG TABLET PO PRN (20:36)
[2020-10-12] MEDS: diphenhydrAMINE CAP 25 MG CAPSULE PO PRN (20:36)
[2020-10-13] MEDS: SODIUM CHLORIDE 0.9% 1,000 ML IV SCH (00:01)
[2020-10-13] MEDS: ALBUTEROL INHALER 18 GM INH SCH ×4 (00:02→19:17)
[2020-10-13] MEDS: MULTIVITAMIN (BEROCCA) TABLET PO SCH (08:35)
[2020-10-13] MEDS: FOLIC ACID 1 MG TABLET PO SCH (08:35)
[2020-10-13] MEDS: ASCORBIC ACID 500 MG TABLET PO SCH ×2 (08:35→21:28)
[2020-10-13] MEDS: THIAMINE 100 MG TABLET PO SCH (08:35)
[2020-10-13] MEDS: DESITIN 4OZ/NYSTATIN 15 GRAM MIXTURE PASTE TOP SCH ×2 (08:35→21:28)
[2020-10-13] MEDS: FAMOTIDINE 20 MG TABLET PO SCH ×2 (08:35→21:28)
[2020-10-13] MEDS: ZINC GLUCONATE 50 MG TABLET PO SCH (08:35)
[2020-10-13] MEDS: LACTULOSE 20 GM/30 ML UDCUP PO SCH (10:39)
[2020-10-13] MEDS: BENZONATATE 100 MG CAPSULE PO SCH ×2 (11:33→21:28)
[2020-10-13 13:38] LABS: Basophils % 0.1 % (0.0-0.8); Eosinophils # 0.1 10*3/uL (0.0-0.87); Eosinophils % 0.5 % (0.00-10.9); Hematocrit 32.3 VOL% (42.0-52.0); Hemoglobin 10.8 GM/DL (14.0-18.0); Immature Granulocytes % 0.9 %; Immature Granulocytes Absolute 0.13 #; Lymphocytes # 0.6 10*3/uL (1.4-4.0); Lymphocytes % 3.8 % (21.2-54.2); Mean Corpuscular HGB Conc 33.4 GM/DL (32-36); Mean Corpuscular Volume 98.5 FL (87-102); Mean Platelet Volume 9.4 FL (9.6-12.0); Monocytes % 0.7 % (1.7-12.7); Platelet Count 213 T/CUMM (130-400); Red Blood Count 3.28 MC/CUMM (3.8-5.5); Red Cell Distribution Width 12.7 % (9.3-17.3); White Blood Count 15.1 T/CUMM (4-12)
[2020-10-13 13:54] LABS: Calcium 7.9 MG/DL (8.5-10.1); Osmolality,Calculated 264.7 MOS/KG (273-304)
[2020-10-13 14:04] LABS: Band Neutrophils 4 % (0-10); Lymphocytes 4 % (20-55); Segmented Neutrophils 92 % (50-85); Total Cells Counted 100
[2020-10-13 14:05] LABS: Platelet Estimate Normal
[2020-10-13] MEDS: WARFARIN 5 MG TABLET PO SCH (18:38)
[2020-10-13] MEDS: MELATONIN 3 MG TABLET PO PRN (21:28)
[2020-10-13] MEDS: ZALEPLON 5 MG CAPSULE PO PRN (21:28)
[2020-10-14] MEDS: ALBUTEROL INHALER 18 GM INH SCH ×4 (00:10→20:00)
[2020-10-14 06:19] LABS: Basophils % 0.3 % (0.0-0.8); Eosinophils # 0.1 10*3/uL (0.0-0.87); Eosinophils % 1.2 % (0.00-10.9); Hematocrit 30.6 VOL% (42.0-52.0); Immature Granulocytes Absolute 0.11 #; Lymphocytes # 0.7 10*3/uL (1.4-4.0); Lymphocytes % 6.1 % (21.2-54.2); Mean Corpuscular HGB Conc 32.7 GM/DL (32-36); Mean Corpuscular Volume 102.7 FL (87-102); Mean Platelet Volume 9.9 FL (9.6-12.0); Monocytes % 0.7 % (1.7-12.7); Neutrophils % 90.7 % (38.7-73.9); Platelet Count 186 T/CUMM (130-400); Red Blood Count 2.98 MC/CUMM (3.8-5.5); Red Cell Distribution Width 12.7 % (9.3-17.3); White Blood Count 10.7 T/CUMM (4-12)
[2020-10-14 06:33] LABS: INR 2.2; PT Patient Result 22.3 SECS (9.8-11.9)
[2020-10-14 06:40] LABS: Osmolality,Calculated 267.2 MOS/KG (273-304); Potassium 4.3 MMOL/L (3.5-5.1)
[2020-10-14 06:50] LABS: Band Neutrophils 2 % (0-10); Eosinophils 1 % (0-10); Hypochromasia 1+; Lymphocytes 5 % (20-55); Microcytosis 1+; Segmented Neutrophils 92 % (50-85); Total Cells Counted 100
[2020-10-14 06:51] LABS: Platelet Estimate Adequate
[2020-10-14] MEDS ORDERED: TUBERCULIN SKIN TEST 0.1 ML SYRINGE INTRADERM ONE (07:18)
[2020-10-14] MEDS: MULTIVITAMIN (BEROCCA) TABLET PO SCH (09:11)
[2020-10-14] MEDS: BENZONATATE 100 MG CAPSULE PO SCH ×2 (09:11→20:00)
[2020-10-14] MEDS: ASCORBIC ACID 500 MG TABLET PO SCH ×2 (09:11→20:00)
[2020-10-14] MEDS: FAMOTIDINE 20 MG TABLET PO SCH ×2 (09:12→20:00)
[2020-10-14] MEDS: FOLIC ACID 1 MG TABLET PO SCH (09:12)
[2020-10-14] MEDS: ZINC GLUCONATE 50 MG TABLET PO SCH (09:12)
[2020-10-14] MEDS: THIAMINE 100 MG TABLET PO SCH (09:12)
[2020-10-14] MEDS: guaiFENesin 200 MG/10 ML UDCUP PO PRN ×2 (09:12→20:00)
[2020-10-14] MEDS: LACTULOSE 20 GM/30 ML UDCUP PO SCH ×2 (09:27→10:25)
[2020-10-14] MEDS: POLYETHYLENE GLYCOL POWDER 17 GM PACK PO SCH (11:30)
[2020-10-14] MEDS: DESITIN 4OZ/NYSTATIN 15 GRAM MIXTURE PASTE TOP SCH ×2 (15:12→21:09)
[2020-10-14] MEDS: ZALEPLON 5 MG CAPSULE PO PRN (20:00)
[2020-10-14] MEDS: DOCUSATE SODIUM 100 MG CAPSULE PO SCH (20:00)
[2020-10-14] MEDS: ACETAMINOPHEN 325 MG TABLET PO PRN (20:00)
[2020-10-14] MEDS: MELATONIN 3 MG TABLET PO PRN (20:00)
[2020-10-14] MEDS: WARFARIN 5 MG TABLET PO SCH (20:00)
[2020-10-15] MEDS: ALBUTEROL INHALER 18 GM INH SCH ×4 (00:05→20:07)
[2020-10-15] MEDS: guaiFENesin 200 MG/10 ML UDCUP PO PRN ×2 (04:12→11:19)
[2020-10-15 06:53] LABS: Basophils % 0.2 % (0.0-0.8); Eosinophils # 0.2 10*3/uL (0.0-0.87); Hematocrit 30.7 VOL% (42.0-52.0); Hemoglobin 9.9 GM/DL (14.0-18.0); Immature Granulocytes % 0.9 %; Immature Granulocytes Absolute 0.08 #; Lymphocytes # 0.7 10*3/uL (1.4-4.0); Lymphocytes % 7.2 % (21.2-54.2); Mean Corpuscular HGB Conc 32.2 GM/DL (32-36); Mean Corpuscular Volume 100.7 FL (87-102); Mean Platelet Volume 9.5 FL (9.6-12.0); Monocytes % 1.1 % (1.7-12.7); Neutrophils % 88.6 % (38.7-73.9); Platelet Count 210 T/CUMM (130-400); Red Blood Count 3.05 MC/CUMM (3.8-5.5); Red Cell Distribution Width 12.7 % (9.3-17.3)
[2020-10-15 07:18] LABS: Calcium 8.2 MG/DL (8.5-10.1); Osmolality,Calculated 269.2 MOS/KG (273-304)
[2020-10-15 07:23] LABS: INR 3.3; PT Patient Result 33.2 SECS (9.8-11.9)
[2020-10-15] MEDS ORDERED: SKIN HEALING OINT (AQUAPHOR) 50 GM TUBE TOP PRN (10:36)
[2020-10-15] MEDS: ASCORBIC ACID 500 MG TABLET PO SCH ×2 (11:17→21:06)
[2020-10-15] MEDS: THIAMINE 100 MG TABLET PO SCH (11:17)
[2020-10-15] MEDS: ACETAMINOPHEN 325 MG TABLET PO PRN (11:17)
[2020-10-15] MEDS: BENZONATATE 100 MG CAPSULE PO SCH ×2 (11:19→21:06)
[2020-10-15] MEDS: DOCUSATE SODIUM 100 MG CAPSULE PO SCH ×2 (11:19→21:06)
[2020-10-15] MEDS: LACTULOSE 20 GM/30 ML UDCUP PO SCH (11:20)
[2020-10-15] MEDS: MULTIVITAMIN (BEROCCA) TABLET PO SCH (11:20)
[2020-10-15] MEDS: ZINC GLUCONATE 50 MG TABLET PO SCH (11:20)
[2020-10-15] MEDS: POTASSIUM CHLORIDE 20 MEQ TABLET PO PRN (11:20)
[2020-10-15] MEDS: FAMOTIDINE 20 MG TABLET PO SCH ×2 (11:20→21:06)
[2020-10-15] MEDS: FOLIC ACID 1 MG TABLET PO SCH (11:20)
[2020-10-15] MEDS: POLYETHYLENE GLYCOL POWDER 17 GM PACK PO SCH (11:21)
[2020-10-15] MEDS: DESITIN 4OZ/NYSTATIN 15 GRAM MIXTURE PASTE TOP SCH ×2 (11:21→21:11)
[2020-10-15] MEDS ORDERED: predniSONE 20 MG TABLET PO ONE (11:39)
[2020-10-15] MEDS: LORATADINE 10 MG TABLET PO SCH (12:13)
[2020-10-15] MEDS: diphenhydrAMINE CAP 25 MG CAPSULE PO PRN (15:02)
[2020-10-15] MEDS: MELATONIN 3 MG TABLET PO PRN (21:06)
[2020-10-15] MEDS: ZALEPLON 5 MG CAPSULE PO PRN (21:06)
[2020-10-16] MEDS: ALBUTEROL INHALER 18 GM INH SCH ×4 (00:36→19:35)
[2020-10-16 07:16] LABS: PT Patient Result 30.3 SECS (9.8-11.9)
[2020-10-16] MEDS: FOLIC ACID 1 MG TABLET PO SCH (09:08)
[2020-10-16] MEDS: BENZONATATE 100 MG CAPSULE PO SCH ×2 (09:08→20:00)
[2020-10-16] MEDS: FAMOTIDINE 20 MG TABLET PO SCH ×2 (09:08→20:00)
[2020-10-16] MEDS: LORATADINE 10 MG TABLET PO SCH (09:08)
[2020-10-16] MEDS: DOCUSATE SODIUM 100 MG CAPSULE PO SCH ×2 (09:08→20:00)
[2020-10-16] MEDS: MULTIVITAMIN (BEROCCA) TABLET PO SCH (09:08)
[2020-10-16] MEDS: ZINC GLUCONATE 50 MG TABLET PO SCH (09:08)
[2020-10-16] MEDS: ASCORBIC ACID 500 MG TABLET PO SCH ×2 (09:08→20:00)
[2020-10-16] MEDS: THIAMINE 100 MG TABLET PO SCH (09:08)
[2020-10-16] MEDS: LACTULOSE 20 GM/30 ML UDCUP PO SCH (09:41)
[2020-10-16] MEDS: POLYETHYLENE GLYCOL POWDER 17 GM PACK PO SCH (09:41)
[2020-10-16] MEDS: DESITIN 4OZ/NYSTATIN 15 GRAM MIXTURE PASTE TOP SCH ×3 (14:21→20:02)
[2020-10-17] MEDS: ALBUTEROL INHALER 18 GM INH SCH ×4 (01:00→20:37)
[2020-10-17] MEDS: ASCORBIC ACID 500 MG TABLET PO SCH ×2 (09:04→20:36)
[2020-10-17] MEDS: ZINC GLUCONATE 50 MG TABLET PO SCH (09:04)
[2020-10-17] MEDS: FAMOTIDINE 20 MG TABLET PO SCH ×2 (09:04→20:35)
[2020-10-17] MEDS: MULTIVITAMIN (BEROCCA) TABLET PO SCH (09:04)
[2020-10-17] MEDS: BENZONATATE 100 MG CAPSULE PO SCH ×2 (09:04→20:35)
[2020-10-17] MEDS: LORATADINE 10 MG TABLET PO SCH (09:04)
[2020-10-17] MEDS: DOCUSATE SODIUM 100 MG CAPSULE PO SCH ×2 (09:04→20:37)
[2020-10-17] MEDS: FOLIC ACID 1 MG TABLET PO SCH (09:04)
[2020-10-17] MEDS: THIAMINE 100 MG TABLET PO SCH (09:04)
[2020-10-17] MEDS: DESITIN 4OZ/NYSTATIN 15 GRAM MIXTURE PASTE TOP SCH ×2 (09:05→20:40)
[2020-10-17 09:17] LABS: INR 2.2; PT Patient Result 22.5 SECS (9.8-11.9)
[2020-10-17] MEDS: LACTULOSE 20 GM/30 ML UDCUP PO SCH (10:31)
[2020-10-17] MEDS: POLYETHYLENE GLYCOL POWDER 17 GM PACK PO SCH (10:31)
[2020-10-17] MEDS: FLUTICASONE 50 MCG NASAL SPRAY 16 GM BOTTLE BOTH NARES SCH (14:27)
[2020-10-17] MEDS: WARFARIN 5 MG TABLET PO SCH (17:07)
[2020-10-17] MEDS: TEMAZEPAM 7.5 MG CAPSULE PO SCH (20:36)
[2020-10-17] MEDS: MELATONIN 3 MG TABLET PO PRN (20:36)
[2020-10-18] MEDS: ALBUTEROL INHALER 18 GM INH SCH ×4 (02:47→18:24)
[2020-10-18 06:09] LABS: INR 1.9; PT Patient Result 20.1 SECS (9.8-11.9)
[2020-10-18] MEDS: FOLIC ACID 1 MG TABLET PO SCH (09:40)
[2020-10-18] MEDS: FAMOTIDINE 20 MG TABLET PO SCH ×2 (09:40→20:39)
[2020-10-18] MEDS: LORATADINE 10 MG TABLET PO SCH (09:40)
[2020-10-18] MEDS: BENZONATATE 100 MG CAPSULE PO SCH ×2 (09:40→20:40)
[2020-10-18] MEDS: THIAMINE 100 MG TABLET PO SCH (09:40)
[2020-10-18] MEDS: DOCUSATE SODIUM 100 MG CAPSULE PO SCH ×2 (09:40→20:40)
[2020-10-18] MEDS: POLYETHYLENE GLYCOL POWDER 17 GM PACK PO SCH (09:40)
[2020-10-18] MEDS: FLUTICASONE 50 MCG NASAL SPRAY 16 GM BOTTLE BOTH NARES SCH (09:40)
[2020-10-18] MEDS: DESITIN 4OZ/NYSTATIN 15 GRAM MIXTURE PASTE TOP SCH ×2 (09:40→20:43)
[2020-10-18] MEDS: LACTULOSE 20 GM/30 ML UDCUP PO SCH (09:40)
[2020-10-18] MEDS: MULTIVITAMIN (BEROCCA) TABLET PO SCH (09:40)
[2020-10-18] MEDS: ZINC GLUCONATE 50 MG TABLET PO SCH (09:41)
[2020-10-18] MEDS: ASCORBIC ACID 500 MG TABLET PO SCH ×2 (09:41→20:39)
[2020-10-18] MEDS: WARFARIN 5 MG TABLET PO SCH (17:40)
[2020-10-18] MEDS: MELATONIN 3 MG TABLET PO PRN (20:40)
[2020-10-18] MEDS: TEMAZEPAM 7.5 MG CAPSULE PO SCH (20:40)
[2020-10-18] MEDS: guaiFENesin 200 MG/10 ML UDCUP PO PRN (20:47)
[2020-10-19] MEDS: ACETAMINOPHEN 325 MG TABLET PO PRN ×2 (00:17→20:44)
[2020-10-19] MEDS: ALBUTEROL INHALER 18 GM INH SCH ×4 (00:18→19:33)
[2020-10-19 06:17] LABS: INR 2.3
[2020-10-19 06:21] LABS: PT Patient Result 23.7 SECS (9.8-11.9)
[2020-10-19] MEDS: DOCUSATE SODIUM 100 MG CAPSULE PO SCH ×2 (08:32→20:42)
[2020-10-19] MEDS: ZINC GLUCONATE 50 MG TABLET PO SCH (08:32)
[2020-10-19] MEDS: FOLIC ACID 1 MG TABLET PO SCH (08:32)
[2020-10-19] MEDS: BENZONATATE 100 MG CAPSULE PO SCH ×2 (08:32→20:45)
[2020-10-19] MEDS: ASCORBIC ACID 500 MG TABLET PO SCH ×2 (08:32→20:44)
[2020-10-19] MEDS: MULTIVITAMIN (BEROCCA) TABLET PO SCH (08:32)
[2020-10-19] MEDS: LORATADINE 10 MG TABLET PO SCH (08:32)
[2020-10-19] MEDS: FAMOTIDINE 20 MG TABLET PO SCH ×2 (08:32→20:45)
[2020-10-19] MEDS: THIAMINE 100 MG TABLET PO SCH (08:32)
[2020-10-19] MEDS: DESITIN 4OZ/NYSTATIN 15 GRAM MIXTURE PASTE TOP SCH ×2 (08:33→20:45)
[2020-10-19] MEDS: POLYETHYLENE GLYCOL POWDER 17 GM PACK PO SCH (08:33)
[2020-10-19] MEDS: FLUTICASONE 50 MCG NASAL SPRAY 16 GM BOTTLE BOTH NARES SCH (08:33)
[2020-10-19] MEDS: LACTULOSE 20 GM/30 ML UDCUP PO SCH (08:33)
[2020-10-19] MEDS: WARFARIN 5 MG TABLET PO SCH (17:13)
[2020-10-19] MEDS: MELATONIN 3 MG TABLET PO PRN (20:44)
[2020-10-19] MEDS: TEMAZEPAM 7.5 MG CAPSULE PO SCH (20:44)
[2020-10-20] MEDS: ALBUTEROL INHALER 18 GM INH SCH ×3 (00:39→19:33)
[2020-10-20 06:31] LABS: INR 2.4
[2020-10-20 06:34] LABS: PT Patient Result 24.8 SECS (9.8-11.9)
[2020-10-20] MEDS: POLYETHYLENE GLYCOL POWDER 17 GM PACK PO SCH (08:47)
[2020-10-20] MEDS: LORATADINE 10 MG TABLET PO SCH (08:49)
[2020-10-20] MEDS: MULTIVITAMIN (BEROCCA) TABLET PO SCH (08:49)
[2020-10-20] MEDS: ZINC GLUCONATE 50 MG TABLET PO SCH (08:49)
[2020-10-20] MEDS: DOCUSATE SODIUM 100 MG CAPSULE PO SCH ×2 (08:49→20:42)
[2020-10-20] MEDS: FAMOTIDINE 20 MG TABLET PO SCH ×2 (08:50→20:42)
[2020-10-20] MEDS: FOLIC ACID 1 MG TABLET PO SCH (08:50)
[2020-10-20] MEDS: THIAMINE 100 MG TABLET PO SCH (08:50)
[2020-10-20] MEDS: BENZONATATE 100 MG CAPSULE PO SCH ×2 (08:50→20:42)
[2020-10-20] MEDS: ASCORBIC ACID 500 MG TABLET PO SCH ×2 (08:50→20:42)
[2020-10-20] MEDS: FLUTICASONE 50 MCG NASAL SPRAY 16 GM BOTTLE BOTH NARES SCH (08:51)
[2020-10-20] MEDS: DESITIN 4OZ/NYSTATIN 15 GRAM MIXTURE PASTE TOP SCH ×2 (08:51→20:45)
[2020-10-20] MEDS: LACTULOSE 20 GM/30 ML UDCUP PO SCH (11:00)
[2020-10-20] MEDS: diphenhydrAMINE CAP 25 MG CAPSULE PO PRN (16:57)
[2020-10-20] MEDS: WARFARIN 5 MG TABLET PO SCH (17:00)
[2020-10-20] MEDS: TEMAZEPAM 7.5 MG CAPSULE PO SCH (20:42)
[2020-10-21] MEDS: ALBUTEROL INHALER 18 GM INH SCH ×4 (01:00→19:37)
[2020-10-21] MEDS: FAMOTIDINE 20 MG TABLET PO SCH ×2 (09:38→22:01)
[2020-10-21] MEDS: LORATADINE 10 MG TABLET PO SCH (09:38)
[2020-10-21] MEDS: POLYETHYLENE GLYCOL POWDER 17 GM PACK PO SCH (09:38)
[2020-10-21] MEDS: MULTIVITAMIN (BEROCCA) TABLET PO SCH (09:38)
[2020-10-21] MEDS: FOLIC ACID 1 MG TABLET PO SCH (09:38)
[2020-10-21] MEDS: ZINC GLUCONATE 50 MG TABLET PO SCH (09:38)
[2020-10-21] MEDS: BENZONATATE 100 MG CAPSULE PO SCH ×2 (09:38→22:01)
[2020-10-21] MEDS: ASCORBIC ACID 500 MG TABLET PO SCH ×2 (09:38→22:01)
[2020-10-21] MEDS: THIAMINE 100 MG TABLET PO SCH (09:38)
[2020-10-21] MEDS: DOCUSATE SODIUM 100 MG CAPSULE PO SCH ×2 (09:39→22:01)
[2020-10-21] MEDS: LACTULOSE 20 GM/30 ML UDCUP PO SCH (09:39)
[2020-10-21] MEDS: FLUTICASONE 50 MCG NASAL SPRAY 16 GM BOTTLE BOTH NARES SCH (09:39)
[2020-10-21] MEDS: DESITIN 4OZ/NYSTATIN 15 GRAM MIXTURE PASTE TOP SCH ×2 (09:40→22:01)
[2020-10-21] MEDS: busPIRone 5 MG TABLET PO SCH ×2 (14:38→22:01)
[2020-10-21] MEDS: WARFARIN 5 MG TABLET PO SCH (17:25)
[2020-10-21] MEDS: TEMAZEPAM 7.5 MG CAPSULE PO SCH (22:00)
[2020-10-22] MEDS: ALBUTEROL INHALER 18 GM INH SCH (01:07)
[2020-10-22] MEDS: FAMOTIDINE 20 MG TABLET PO SCH ×2 (08:53→21:15)
[2020-10-22] MEDS: BENZONATATE 100 MG CAPSULE PO SCH ×2 (08:53→21:15)
[2020-10-22] MEDS: ASCORBIC ACID 500 MG TABLET PO SCH (08:53)
[2020-10-22] MEDS: DOCUSATE SODIUM 100 MG CAPSULE PO SCH ×2 (08:53→21:15)
[2020-10-22] MEDS: THIAMINE 100 MG TABLET PO SCH (08:54)
[2020-10-22] MEDS: FOLIC ACID 1 MG TABLET PO SCH (08:54)
[2020-10-22] MEDS: FLUTICASONE 50 MCG NASAL SPRAY 16 GM BOTTLE BOTH NARES SCH (08:54)
[2020-10-22] MEDS: busPIRone 5 MG TABLET PO SCH ×3 (08:54→21:15)
[2020-10-22] MEDS: POLYETHYLENE GLYCOL POWDER 17 GM PACK PO SCH (08:54)
[2020-10-22] MEDS: LORATADINE 10 MG TABLET PO SCH (08:54)
[2020-10-22] MEDS: LACTULOSE 20 GM/30 ML UDCUP PO SCH (08:54)
[2020-10-22] MEDS: MULTIVITAMIN (BEROCCA) TABLET PO SCH (08:54)
[2020-10-22] MEDS: ZINC GLUCONATE 50 MG TABLET PO SCH (08:54)
[2020-10-22] MEDS: DESITIN 4OZ/NYSTATIN 15 GRAM MIXTURE PASTE TOP SCH ×2 (08:55→21:16)
[2020-10-22] MEDS: ALBUTEROL 2.5 MG/3 ML NEB RESP TX SCH ×2 (15:04→20:27)
[2020-10-22] MEDS: WARFARIN 5 MG TABLET PO SCH (17:48)
[2020-10-22] MEDS: TEMAZEPAM 7.5 MG CAPSULE PO SCH (21:15)
[2020-10-23] MEDS: ALBUTEROL 2.5 MG/3 ML NEB RESP TX SCH ×4 (02:42→19:45)
[2020-10-23 04:45] LABS: INR 2.3
[2020-10-23 04:50] LABS: PT Patient Result 23.2 SECS (9.8-11.9)
[2020-10-23] MEDS: POLYETHYLENE GLYCOL POWDER 17 GM PACK PO SCH (08:30)
[2020-10-23] MEDS: FAMOTIDINE 20 MG TABLET PO SCH ×2 (08:31→20:59)
[2020-10-23] MEDS: MULTIVITAMIN (BEROCCA) TABLET PO SCH (08:31)
[2020-10-23] MEDS: DOCUSATE SODIUM 100 MG CAPSULE PO SCH ×2 (08:31→20:58)
[2020-10-23] MEDS: THIAMINE 100 MG TABLET PO SCH (08:31)
[2020-10-23] MEDS: LORATADINE 10 MG TABLET PO SCH (08:31)
[2020-10-23] MEDS: BENZONATATE 100 MG CAPSULE PO SCH ×2 (08:31→20:59)
[2020-10-23] MEDS: busPIRone 5 MG TABLET PO SCH ×3 (08:31→20:58)
[2020-10-23] MEDS: FOLIC ACID 1 MG TABLET PO SCH (08:32)
[2020-10-23] MEDS: guaiFENesin 200 MG/10 ML UDCUP PO PRN (08:32)
[2020-10-23] MEDS: DESITIN 4OZ/NYSTATIN 15 GRAM MIXTURE PASTE TOP SCH ×2 (08:32→20:59)
[2020-10-23] MEDS: FLUTICASONE 50 MCG NASAL SPRAY 16 GM BOTTLE BOTH NARES SCH (08:33)
[2020-10-23] MEDS: LACTULOSE 20 GM/30 ML UDCUP PO SCH (08:36)
[2020-10-23] MEDS: ALBUTEROL INHALER 18 GM INH SCH ×2 (12:13→12:14)
[2020-10-23] MEDS: WARFARIN 5 MG TABLET PO SCH (18:05)
[2020-10-23] MEDS: TEMAZEPAM 7.5 MG CAPSULE PO SCH (20:59)
[2020-10-24] MEDS: ALBUTEROL 2.5 MG/3 ML NEB RESP TX SCH ×4 (00:30→20:05)
[2020-10-24 06:24] LABS: Basophils % 0.1 % (0.0-0.8); Eosinophils # 0.1 10*3/uL (0.0-0.87); Eosinophils % 1.3 % (0.00-10.9); Hematocrit 28.8 VOL% (42.0-52.0); Hemoglobin 9.3 GM/DL (14.0-18.0); Immature Granulocytes % 0.8 %; Immature Granulocytes Absolute 0.06 #; Lymphocytes # 0.9 10*3/uL (1.4-4.0); Lymphocytes % 12.4 % (21.2-54.2); Mean Corpuscular HGB Conc 32.3 GM/DL (32-36); Mean Corpuscular Volume 100.3 FL (87-102); Mean Platelet Volume 9.5 FL (9.6-12.0); Monocytes % 1.4 % (1.7-12.7); Platelet Count 569 T/CUMM (130-400); Red Blood Count 2.87 MC/CUMM (3.8-5.5); Red Cell Distribution Width 13.2 % (9.3-17.3); White Blood Count 7.2 T/CUMM (4-12)
[2020-10-24 06:34] LABS: INR 2.2; PT Patient Result 22.8 SECS (9.8-11.9)
[2020-10-24 06:53] LABS: Hypochromasia 1+; Microcytosis 1+
[2020-10-24 06:54] LABS: Platelet Estimate Increased
[2020-10-24 07:19] LABS: Osmolality,Calculated 265.4 MOS/KG (273-304); Potassium 3.6 MMOL/L (3.5-5.1)
[2020-10-24] MEDS: MULTIVITAMIN (BEROCCA) TABLET PO SCH (08:55)
[2020-10-24] MEDS: FAMOTIDINE 20 MG TABLET PO SCH ×2 (08:55→20:45)
[2020-10-24] MEDS: FOLIC ACID 1 MG TABLET PO SCH (08:56)
[2020-10-24] MEDS: busPIRone 5 MG TABLET PO SCH ×3 (08:56→20:46)
[2020-10-24] MEDS: LACTULOSE 20 GM/30 ML UDCUP PO SCH (08:56)
[2020-10-24] MEDS: LORATADINE 10 MG TABLET PO SCH (08:56)
[2020-10-24] MEDS: DOCUSATE SODIUM 100 MG CAPSULE PO SCH ×2 (08:56→20:46)
[2020-10-24] MEDS: THIAMINE 100 MG TABLET PO SCH (08:56)
[2020-10-24] MEDS: BENZONATATE 100 MG CAPSULE PO SCH ×2 (08:56→20:47)
[2020-10-24] MEDS: FLUTICASONE 50 MCG NASAL SPRAY 16 GM BOTTLE BOTH NARES SCH (08:57)
[2020-10-24] MEDS: DESITIN 4OZ/NYSTATIN 15 GRAM MIXTURE PASTE TOP SCH ×2 (08:57→20:47)
[2020-10-24] MEDS: POLYETHYLENE GLYCOL POWDER 17 GM PACK PO SCH (08:57)
[2020-10-24 15:20] LABS: % Iron Saturation 22.6 % (18-50); Ferritin 910.1 ng/ml (26-388)
[2020-10-24] MEDS: WARFARIN 5 MG TABLET PO SCH (17:55)
[2020-10-24] MEDS: ACETAMINOPHEN 325 MG TABLET PO PRN (20:46)
[2020-10-24] MEDS: TEMAZEPAM 7.5 MG CAPSULE PO SCH (20:47)
[2020-10-24] MEDS: MELATONIN 3 MG TABLET PO PRN (20:51)
[2020-10-25] MEDS: ALBUTEROL 2.5 MG/3 ML NEB RESP TX SCH ×4 (01:00→19:55)
[2020-10-25 03:29] LABS: Basophils % 0.2 % (0.0-0.8); Eosinophils # 0.2 10*3/uL (0.0-0.87); Eosinophils % 2.3 % (0.00-10.9); Hematocrit 27.3 VOL% (42.0-52.0); Hemoglobin 8.8 GM/DL (14.0-18.0); Immature Granulocytes % 0.8 %; Immature Granulocytes Absolute 0.05 #; Lymphocytes # 0.8 10*3/uL (1.4-4.0); Lymphocytes % 11.8 % (21.2-54.2); Mean Corpuscular HGB Conc 32.2 GM/DL (32-36); Mean Corpuscular Volume 100.7 FL (87-102); Mean Platelet Volume 9.1 FL (9.6-12.0); Monocytes % 2.2 % (1.7-12.7); Neutrophils % 82.7 % (38.7-73.9); Platelet Count 472 T/CUMM (130-400); Red Blood Count 2.71 MC/CUMM (3.8-5.5); Red Cell Distribution Width 13.2 % (9.3-17.3); White Blood Count 6.5 T/CUMM (4-12)
[2020-10-25 04:11] LABS: Calcium 8.7 MG/DL (8.5-10.1); Osmolality,Calculated 268.1 MOS/KG (273-304)
[2020-10-25] MEDS: MULTIVITAMIN (BEROCCA) TABLET PO SCH (09:19)
[2020-10-25] MEDS: FOLIC ACID 1 MG TABLET PO SCH (09:19)
[2020-10-25] MEDS: BENZONATATE 100 MG CAPSULE PO SCH ×2 (09:19→21:45)
[2020-10-25] MEDS: THIAMINE 100 MG TABLET PO SCH (09:19)
[2020-10-25] MEDS: busPIRone 5 MG TABLET PO SCH ×3 (09:20→21:45)
[2020-10-25] MEDS: DOCUSATE SODIUM 100 MG CAPSULE PO SCH ×2 (09:20→21:45)
[2020-10-25] MEDS: FAMOTIDINE 20 MG TABLET PO SCH ×2 (09:20→21:45)
[2020-10-25] MEDS: LORATADINE 10 MG TABLET PO SCH (09:20)
[2020-10-25] MEDS: LACTULOSE 20 GM/30 ML UDCUP PO SCH (09:21)
[2020-10-25] MEDS: POLYETHYLENE GLYCOL POWDER 17 GM PACK PO SCH (09:21)
[2020-10-25] MEDS: FLUTICASONE 50 MCG NASAL SPRAY 16 GM BOTTLE BOTH NARES SCH (09:21)
[2020-10-25] MEDS: DESITIN 4OZ/NYSTATIN 15 GRAM MIXTURE PASTE TOP SCH ×2 (09:22→23:06)
[2020-10-25] MEDS: WARFARIN 5 MG TABLET PO SCH (17:52)
[2020-10-25] MEDS: MELATONIN 3 MG TABLET PO PRN (21:45)
[2020-10-26] MEDS: ALBUTEROL 2.5 MG/3 ML NEB RESP TX SCH ×4 (01:00→19:43)
[2020-10-26] MEDS: MULTIVITAMIN (BEROCCA) TABLET PO SCH (09:09)
[2020-10-26] MEDS: THIAMINE 100 MG TABLET PO SCH (09:09)
[2020-10-26] MEDS: BENZONATATE 100 MG CAPSULE PO SCH ×2 (09:09→21:22)
[2020-10-26] MEDS: FAMOTIDINE 20 MG TABLET PO SCH ×2 (09:09→21:21)
[2020-10-26] MEDS: busPIRone 5 MG TABLET PO SCH ×3 (09:10→21:22)
[2020-10-26] MEDS: LORATADINE 10 MG TABLET PO SCH (09:10)
[2020-10-26] MEDS: DOCUSATE SODIUM 100 MG CAPSULE PO SCH ×2 (09:10→21:21)
[2020-10-26] MEDS: LACTULOSE 20 GM/30 ML UDCUP PO SCH (09:11)
[2020-10-26] MEDS: FLUTICASONE 50 MCG NASAL SPRAY 16 GM BOTTLE BOTH NARES SCH (09:11)
[2020-10-26] MEDS: DESITIN 4OZ/NYSTATIN 15 GRAM MIXTURE PASTE TOP SCH (09:12)
[2020-10-26] MEDS: FOLIC ACID 1 MG TABLET PO SCH (11:04)
[2020-10-26] MEDS: POLYETHYLENE GLYCOL POWDER 17 GM PACK PO SCH (11:04)
[2020-10-26] MEDS: WARFARIN 5 MG TABLET PO SCH (17:02)
[2020-10-26] MEDS: MELATONIN 3 MG TABLET PO PRN (21:45)
[2020-10-27] MEDS: ALBUTEROL 2.5 MG/3 ML NEB RESP TX SCH ×4 (00:50→19:22)
[2020-10-27] MEDS: DESITIN 4OZ/NYSTATIN 15 GRAM MIXTURE PASTE TOP SCH ×3 (02:06→21:08)
[2020-10-27 03:46] LABS: Basophils % 0.2 % (0.0-0.8); Eosinophils # 0.1 10*3/uL (0.0-0.87); Eosinophils % 1.8 % (0.00-10.9); Hematocrit 25.1 VOL% (42.0-52.0); Hemoglobin 7.9 GM/DL (14.0-18.0); Immature Granulocytes Absolute 0.06 #; Lymphocytes # 0.8 10*3/uL (1.4-4.0); Lymphocytes % 13.4 % (21.2-54.2); Mean Corpuscular HGB Conc 31.5 GM/DL (32-36); Mean Corpuscular Volume 100.4 FL (87-102); Mean Platelet Volume 9.1 FL (9.6-12.0); Neutrophils % 81.6 % (38.7-73.9); Platelet Count 486 T/CUMM (130-400); Red Cell Distribution Width 13.2 % (9.3-17.3)
[2020-10-27 03:58] LABS: INR 4.7; PT Patient Result 46.2 SECS (9.8-11.9)
[2020-10-27 04:08] LABS: Calcium 8.6 MG/DL (8.5-10.1); Hypochromasia 1+; Microcytosis 1+; Osmolality,Calculated 265.2 MOS/KG (273-304); Potassium 3.8 MMOL/L (3.5-5.1)
[2020-10-27 04:09] LABS: Platelet Estimate Increased
[2020-10-27] MEDS: BENZONATATE 100 MG CAPSULE PO SCH ×2 (08:59→21:08)
[2020-10-27] MEDS: DOCUSATE SODIUM 100 MG CAPSULE PO SCH ×2 (08:59→21:08)
[2020-10-27] MEDS: FOLIC ACID 1 MG TABLET PO SCH (08:59)
[2020-10-27] MEDS: FLUTICASONE 50 MCG NASAL SPRAY 16 GM BOTTLE BOTH NARES SCH (08:59)
[2020-10-27] MEDS: busPIRone 5 MG TABLET PO SCH ×3 (08:59→21:08)
[2020-10-27] MEDS: FAMOTIDINE 20 MG TABLET PO SCH ×2 (08:59→21:08)
[2020-10-27] MEDS: MULTIVITAMIN (BEROCCA) TABLET PO SCH (08:59)
[2020-10-27] MEDS: THIAMINE 100 MG TABLET PO SCH (08:59)
[2020-10-27] MEDS: LORATADINE 10 MG TABLET PO SCH (08:59)
[2020-10-27] MEDS: LACTULOSE 20 GM/30 ML UDCUP PO SCH (09:01)
[2020-10-27] MEDS: guaiFENesin 200 MG/10 ML UDCUP PO PRN ×3 (09:02→21:08)
[2020-10-27] MEDS: POLYETHYLENE GLYCOL POWDER 17 GM PACK PO SCH (12:12)
[2020-10-27] MEDS: PANTOPRAZOLE 40 MG TABLET PO SCH (17:51)
[2020-10-27] MEDS: MELATONIN 3 MG TABLET PO PRN (21:08)
[2020-10-28] MEDS: ALBUTEROL 2.5 MG/3 ML NEB RESP TX SCH ×4 (00:49→19:30)
[2020-10-28 05:47] LABS: Basophils % 0.1 % (0.0-0.8); Eosinophils % 0.6 % (0.00-10.9); Hemoglobin 8.4 GM/DL (14.0-18.0); Immature Granulocytes Absolute 0.07 #; Lymphocytes # 0.8 10*3/uL (1.4-4.0); Lymphocytes % 11.1 % (21.2-54.2); Mean Corpuscular HGB Conc 32.3 GM/DL (32-36); Mean Corpuscular Volume 98.1 FL (87-102); Mean Platelet Volume 9.1 FL (9.6-12.0); Monocytes % 2.3 % (1.7-12.7); Neutrophils % 84.9 % (38.7-73.9); Platelet Count 454 T/CUMM (130-400); Red Blood Count 2.65 MC/CUMM (3.8-5.5); Red Cell Distribution Width 13.2 % (9.3-17.3)
[2020-10-28] MEDS: PANTOPRAZOLE 40 MG TABLET PO SCH ×3 (05:53→17:58)
[2020-10-28 06:04] LABS: INR 3.2; PT Patient Result 32.1 SECS (9.8-11.9)
[2020-10-28 06:08] LABS: Hypochromasia 1+; Microcytosis 1+; Platelet Estimate Adequate
[2020-10-28 06:11] LABS: Albumin 1.6 G/DL (3.4-5.0); Bilirubin,Total 0.8 MG/DL (0.2-1.0); Calcium 8.9 MG/DL (8.5-10.1); Osmolality,Calculated 265.4 MOS/KG (273-304); Potassium 3.8 MMOL/L (3.5-5.1); Total Protein 6.4 G/DL (6.4-8.2)
[2020-10-28] MEDS: FOLIC ACID 1 MG TABLET PO SCH (09:25)
[2020-10-28] MEDS: DOCUSATE SODIUM 100 MG CAPSULE PO SCH ×2 (09:25→21:01)
[2020-10-28] MEDS: BENZONATATE 100 MG CAPSULE PO SCH ×2 (09:25→21:00)
[2020-10-28] MEDS: FAMOTIDINE 20 MG TABLET PO SCH ×2 (09:26→21:00)
[2020-10-28] MEDS: busPIRone 5 MG TABLET PO SCH ×3 (09:26→21:00)
[2020-10-28] MEDS: LORATADINE 10 MG TABLET PO SCH (09:26)
[2020-10-28] MEDS: MULTIVITAMIN (BEROCCA) TABLET PO SCH (09:26)
[2020-10-28] MEDS: LACTULOSE 20 GM/30 ML UDCUP PO SCH (09:27)
[2020-10-28] MEDS: FLUTICASONE 50 MCG NASAL SPRAY 16 GM BOTTLE BOTH NARES SCH (09:27)
[2020-10-28] MEDS: THIAMINE 100 MG TABLET PO SCH (09:29)
[2020-10-28] MEDS: POLYETHYLENE GLYCOL POWDER 17 GM PACK PO SCH (09:29)
[2020-10-28] MEDS: DESITIN 4OZ/NYSTATIN 15 GRAM MIXTURE PASTE TOP SCH ×2 (09:29→21:01)
[2020-10-28] MEDS ORDERED: PHYTONADIONE 5 MG/5 ML ORAL.SYR PO STA (15:33)
[2020-10-28] MEDS: MELATONIN 3 MG TABLET PO PRN (21:00)
[2020-10-28] MEDS: guaiFENesin 200 MG/10 ML UDCUP PO PRN (21:01)
[2020-10-29] MEDS: ALBUTEROL 2.5 MG/3 ML NEB RESP TX SCH ×4 (00:17→19:36)
[2020-10-29 05:36] LABS: Basophils % 0.1 % (0.0-0.8); Eosinophils % 0.5 % (0.00-10.9); Hematocrit 26.3 VOL% (42.0-52.0); Hemoglobin 8.3 GM/DL (14.0-18.0); Immature Granulocytes % 1.1 %; Immature Granulocytes Absolute 0.09 #; Lymphocytes # 0.9 10*3/uL (1.4-4.0); Lymphocytes % 10.3 % (21.2-54.2); Mean Corpuscular HGB Conc 31.6 GM/DL (32-36); Mean Corpuscular Volume 100.8 FL (87-102); Mean Platelet Volume 9.1 FL (9.6-12.0); Monocytes % 1.8 % (1.7-12.7); Neutrophils % 86.2 % (38.7-73.9); Platelet Count 452 T/CUMM (130-400); Red Blood Count 2.61 MC/CUMM (3.8-5.5); Red Cell Distribution Width 13.2 % (9.3-17.3); White Blood Count 8.3 T/CUMM (4-12)
[2020-10-29] MEDS: PANTOPRAZOLE 40 MG TABLET PO SCH ×2 (05:47→17:49)
[2020-10-29 05:49] LABS: INR 1.4; PT Patient Result 14.5 SECS (9.8-11.9)
[2020-10-29 05:54] LABS: Calcium 8.8 MG/DL (8.5-10.1); Potassium 3.8 MMOL/L (3.5-5.1)
[2020-10-29] MEDS: FAMOTIDINE 20 MG TABLET PO SCH ×2 (09:52→21:25)
[2020-10-29] MEDS: LORATADINE 10 MG TABLET PO SCH (09:52)
[2020-10-29] MEDS: THIAMINE 100 MG TABLET PO SCH (09:52)
[2020-10-29] MEDS: BENZONATATE 100 MG CAPSULE PO SCH ×2 (09:52→21:23)
[2020-10-29] MEDS: FOLIC ACID 1 MG TABLET PO SCH (09:52)
[2020-10-29] MEDS: DOCUSATE SODIUM 100 MG CAPSULE PO SCH ×2 (09:52→21:25)
[2020-10-29] MEDS: DESITIN 4OZ/NYSTATIN 15 GRAM MIXTURE PASTE TOP SCH ×2 (09:54→21:26)
[2020-10-29] MEDS: LACTULOSE 20 GM/30 ML UDCUP PO SCH (09:54)
[2020-10-29] MEDS: FLUTICASONE 50 MCG NASAL SPRAY 16 GM BOTTLE BOTH NARES SCH (09:54)
[2020-10-29] MEDS: busPIRone 5 MG TABLET PO SCH ×3 (09:57→21:25)
[2020-10-29] MEDS: MULTIVITAMIN (BEROCCA) TABLET PO SCH (10:01)
[2020-10-29] MEDS: POLYETHYLENE GLYCOL POWDER 17 GM PACK PO SCH (10:02)
[2020-10-29] MEDS: MELATONIN 3 MG TABLET PO PRN (21:29)
[2020-10-30] MEDS: ALBUTEROL 2.5 MG/3 ML NEB RESP TX SCH ×4 (01:00→20:06)
[2020-10-30] MEDS: guaiFENesin 200 MG/10 ML UDCUP PO PRN (05:59)
[2020-10-30] MEDS: PANTOPRAZOLE 40 MG TABLET PO SCH ×2 (05:59→18:34)
[2020-10-30 06:08] LABS: Basophils % 0.1 % (0.0-0.8); Eosinophils # 0.1 10*3/uL (0.0-0.87); Eosinophils % 0.7 % (0.00-10.9); Hematocrit 25.6 VOL% (42.0-52.0); Immature Granulocytes % 1.3 %; Immature Granulocytes Absolute 0.09 #; Lymphocytes # 0.9 10*3/uL (1.4-4.0); Lymphocytes % 13.1 % (21.2-54.2); Mean Corpuscular HGB Conc 31.3 GM/DL (32-36); Mean Platelet Volume 9.1 FL (9.6-12.0); Monocytes % 2.2 % (1.7-12.7); Neutrophils % 82.6 % (38.7-73.9); Platelet Count 413 T/CUMM (130-400); Red Blood Count 2.51 MC/CUMM (3.8-5.5); Red Cell Distribution Width 13.6 % (9.3-17.3)
[2020-10-30 06:12] LABS: INR 1.1; PT Patient Result 11.9 SECS (9.8-11.9)
[2020-10-30 06:25] LABS: Calcium 8.5 MG/DL (8.5-10.1); Osmolality,Calculated 271.8 MOS/KG (273-304); Potassium 3.8 MMOL/L (3.5-5.1)
[2020-10-30 06:42] LABS: Hypochromasia 1+; Microcytosis 1+
[2020-10-30 06:43] LABS: Platelet Estimate Adequate
[2020-10-30] MEDS: FAMOTIDINE 20 MG TABLET PO SCH ×2 (09:10→20:38)
[2020-10-30] MEDS: BENZONATATE 100 MG CAPSULE PO SCH ×2 (09:10→20:37)
[2020-10-30] MEDS: LORATADINE 10 MG TABLET PO SCH (09:10)
[2020-10-30] MEDS: DOCUSATE SODIUM 100 MG CAPSULE PO SCH ×2 (09:10→20:38)
[2020-10-30] MEDS: busPIRone 5 MG TABLET PO SCH ×3 (09:10→20:37)
[2020-10-30] MEDS: MULTIVITAMIN (BEROCCA) TABLET PO SCH (09:10)
[2020-10-30] MEDS: THIAMINE 100 MG TABLET PO SCH (09:10)
[2020-10-30] MEDS: LACTULOSE 20 GM/30 ML UDCUP PO SCH (10:38)
[2020-10-30] MEDS: FOLIC ACID 1 MG TABLET PO SCH (10:38)
[2020-10-30] MEDS: FLUTICASONE 50 MCG NASAL SPRAY 16 GM BOTTLE BOTH NARES SCH (10:38)
[2020-10-30] MEDS: DESITIN 4OZ/NYSTATIN 15 GRAM MIXTURE PASTE TOP SCH ×2 (10:39→22:37)
[2020-10-30] MEDS: POLYETHYLENE GLYCOL POWDER 17 GM PACK PO SCH (10:39)
[2020-10-30] MEDS: WARFARIN 4 MG TABLET PO SCH (18:33)
[2020-10-30] MEDS: MELATONIN 3 MG TABLET PO PRN (20:36)
[2020-10-31] MEDS: ALBUTEROL 2.5 MG/3 ML NEB RESP TX SCH ×4 (01:00→19:28)
[2020-10-31] MEDS: PANTOPRAZOLE 40 MG TABLET PO SCH ×2 (06:02→18:08)
[2020-10-31 06:55] LABS: INR 1.1; PT Patient Result 11.7 SECS (9.8-11.9)
[2020-10-31] MEDS: LORATADINE 10 MG TABLET PO SCH (09:02)
[2020-10-31] MEDS: MULTIVITAMIN (BEROCCA) TABLET PO SCH (09:02)
[2020-10-31] MEDS: FAMOTIDINE 20 MG TABLET PO SCH ×2 (09:02→20:09)
[2020-10-31] MEDS: BENZONATATE 100 MG CAPSULE PO SCH ×2 (09:02→20:09)
[2020-10-31] MEDS: THIAMINE 100 MG TABLET PO SCH (09:02)
[2020-10-31] MEDS: FOLIC ACID 1 MG TABLET PO SCH (09:02)
[2020-10-31] MEDS: busPIRone 5 MG TABLET PO SCH ×3 (09:02→20:10)
[2020-10-31] MEDS: DOCUSATE SODIUM 100 MG CAPSULE PO SCH ×2 (09:03→20:09)
[2020-10-31] MEDS: guaiFENesin 200 MG/10 ML UDCUP PO PRN (09:07)
[2020-10-31] MEDS: DESITIN 4OZ/NYSTATIN 15 GRAM MIXTURE PASTE TOP SCH ×2 (09:08→20:10)
[2020-10-31 09:45] LABS: Hematocrit 25.6 VOL% (42.0-52.0)
[2020-10-31] MEDS: LACTULOSE 20 GM/30 ML UDCUP PO SCH (09:56)
[2020-10-31] MEDS: FLUTICASONE 50 MCG NASAL SPRAY 16 GM BOTTLE BOTH NARES SCH (09:56)
[2020-10-31] MEDS: POLYETHYLENE GLYCOL POWDER 17 GM PACK PO SCH (09:57)
[2020-10-31] MEDS: WARFARIN 4 MG TABLET PO SCH (18:08)
[2020-10-31] MEDS: MELATONIN 3 MG TABLET PO PRN (20:09)
[2020-11-01] MEDS: ALBUTEROL 2.5 MG/3 ML NEB RESP TX SCH ×4 (00:23→19:13)
[2020-11-01] MEDS: guaiFENesin 200 MG/10 ML UDCUP PO PRN ×2 (04:10→20:51)
[2020-11-01 05:29] LABS: Basophils % 0.1 % (0.0-0.8); Eosinophils % 0.4 % (0.00-10.9); Hematocrit 24.6 VOL% (42.0-52.0); Hemoglobin 7.8 GM/DL (14.0-18.0); Immature Granulocytes Absolute 0.08 #; Lymphocytes # 0.9 10*3/uL (1.4-4.0); Lymphocytes % 10.9 % (21.2-54.2); Mean Corpuscular HGB Conc 31.7 GM/DL (32-36); Mean Platelet Volume 9.2 FL (9.6-12.0); Monocytes % 1.8 % (1.7-12.7); Neutrophils % 85.8 % (38.7-73.9); Platelet Count 372 T/CUMM (130-400); Red Blood Count 2.46 MC/CUMM (3.8-5.5); Red Cell Distribution Width 13.9 % (9.3-17.3); White Blood Count 8.2 T/CUMM (4-12)
[2020-11-01 05:39] LABS: Calcium 8.8 MG/DL (8.5-10.1); Potassium 3.9 MMOL/L (3.5-5.1)
[2020-11-01 05:47] LABS: INR 1.1
[2020-11-01] MEDS: PANTOPRAZOLE 40 MG TABLET PO SCH ×2 (05:57→17:48)
[2020-11-01] MEDS: busPIRone 5 MG TABLET PO SCH ×3 (08:30→20:50)
[2020-11-01] MEDS: LORATADINE 10 MG TABLET PO SCH (08:31)
[2020-11-01] MEDS: FOLIC ACID 1 MG TABLET PO SCH (08:31)
[2020-11-01] MEDS: BENZONATATE 100 MG CAPSULE PO SCH ×2 (08:32→20:50)
[2020-11-01] MEDS: FAMOTIDINE 20 MG TABLET PO SCH ×2 (08:32→20:50)
[2020-11-01] MEDS: THIAMINE 100 MG TABLET PO SCH (08:33)
[2020-11-01] MEDS: MULTIVITAMIN (BEROCCA) TABLET PO SCH (08:33)
[2020-11-01] MEDS: DESITIN 4OZ/NYSTATIN 15 GRAM MIXTURE PASTE TOP SCH ×2 (08:38→22:18)
[2020-11-01] MEDS: DOCUSATE SODIUM 100 MG CAPSULE PO SCH ×2 (08:43→20:50)
[2020-11-01] MEDS: LACTULOSE 20 GM/30 ML UDCUP PO SCH (08:43)
[2020-11-01] MEDS: FLUTICASONE 50 MCG NASAL SPRAY 16 GM BOTTLE BOTH NARES SCH (08:44)
[2020-11-01] MEDS: POLYETHYLENE GLYCOL POWDER 17 GM PACK PO SCH (08:44)
[2020-11-01 14:48] LABS: Allen Test Positive
[2020-11-01 14:49] LABS: ABG Base Excess 5.2 MMOL/L (-2.5-2.5); ABG HCO3 29.1 MMOL/L (20-26); ABG PCO2 38.8 MM HG (35-48); ABG PH 7.481 (7.35-7.45); ABG PO2 93.1 MM HG (80-95); ABG TCO2 26.6 MMOL/L (23-27)
[2020-11-01] MEDS: WARFARIN 4 MG TABLET PO SCH (17:48)
[2020-11-01] MEDS: MELATONIN 3 MG TABLET PO PRN (20:50)
[2020-11-02] MEDS: PANTOPRAZOLE 40 MG TABLET PO SCH ×2 (05:46→18:04)
[2020-11-02 06:19] LABS: Basophils % 0.1 % (0.0-0.8); Eosinophils % 0.4 % (0.00-10.9); Hematocrit 24.9 VOL% (42.0-52.0); Hemoglobin 7.7 GM/DL (14.0-18.0); Immature Granulocytes % 0.8 %; Immature Granulocytes Absolute 0.08 #; Lymphocytes # 0.9 10*3/uL (1.4-4.0); Lymphocytes % 9.4 % (21.2-54.2); Mean Corpuscular HGB Conc 30.9 GM/DL (32-36); Mean Corpuscular Volume 102.5 FL (87-102); Mean Platelet Volume 9.3 FL (9.6-12.0); Monocytes % 1.3 % (1.7-12.7); Platelet Count 383 T/CUMM (130-400); Red Blood Count 2.43 MC/CUMM (3.8-5.5); Red Cell Distribution Width 14.1 % (9.3-17.3); White Blood Count 9.7 T/CUMM (4-12)
[2020-11-02 07:05] LABS: Albumin 1.8 G/DL (3.4-5.0); Bilirubin,Total 1.3 MG/DL (0.2-1.0); Calcium 8.6 MG/DL (8.5-10.1); Osmolality,Calculated 271.8 MOS/KG (273-304); Total Protein 6.4 G/DL (6.4-8.2)
[2020-11-02] MEDS: ALBUTEROL 2.5 MG/3 ML NEB RESP TX SCH ×4 (07:40→19:28)
[2020-11-02] MEDS: MULTIVITAMIN (BEROCCA) TABLET PO SCH (08:45)
[2020-11-02] MEDS: BENZONATATE 100 MG CAPSULE PO SCH ×2 (08:45→20:57)
[2020-11-02] MEDS: THIAMINE 100 MG TABLET PO SCH (08:45)
[2020-11-02] MEDS: LORATADINE 10 MG TABLET PO SCH (08:46)
[2020-11-02] MEDS: FOLIC ACID 1 MG TABLET PO SCH (08:46)
[2020-11-02] MEDS: FAMOTIDINE 20 MG TABLET PO SCH ×2 (08:46→20:56)
[2020-11-02] MEDS: busPIRone 5 MG TABLET PO SCH ×3 (08:46→20:57)
[2020-11-02] MEDS: DESITIN 4OZ/NYSTATIN 15 GRAM MIXTURE PASTE TOP SCH ×2 (08:47→21:00)
[2020-11-02] MEDS: FLUTICASONE 50 MCG NASAL SPRAY 16 GM BOTTLE BOTH NARES SCH (10:00)
[2020-11-02] MEDS: LACTULOSE 20 GM/30 ML UDCUP PO SCH (10:00)
[2020-11-02] MEDS: DOCUSATE SODIUM 100 MG CAPSULE PO SCH ×2 (10:00→20:57)
[2020-11-02] MEDS: POLYETHYLENE GLYCOL POWDER 17 GM PACK PO SCH (10:01)
[2020-11-02 10:48] LABS: INR 1.2; PT Patient Result 13.2 SECS (9.8-11.9)
[2020-11-02] MEDS: ENOXAPARIN 80 MG/0.8 ML SYRINGE SUBCUT SCH ×2 (11:10→20:56)
[2020-11-02] MEDS ORDERED: BENZONATATE 100 MG CAPSULE PO PRN (11:43)
[2020-11-02] MEDS: WARFARIN 4 MG TABLET PO SCH (18:03)
[2020-11-02] MEDS: MELATONIN 3 MG TABLET PO PRN (20:57)
[2020-11-03] MEDS: ALBUTEROL 2.5 MG/3 ML NEB RESP TX SCH ×4 (01:00→19:43)
[2020-11-03 05:30] LABS: Basophils % 0.1 % (0.0-0.8); Eosinophils % 0.5 % (0.00-10.9); Hemoglobin 7.7 GM/DL (14.0-18.0); Immature Granulocytes % 0.8 %; Immature Granulocytes Absolute 0.07 #; Lymphocytes # 0.8 10*3/uL (1.4-4.0); Lymphocytes % 9.5 % (21.2-54.2); Mean Corpuscular HGB Conc 30.8 GM/DL (32-36); Mean Corpuscular Volume 103.3 FL (87-102); Mean Platelet Volume 9.2 FL (9.6-12.0); Monocytes % 1.5 % (1.7-12.7); Neutrophils % 87.6 % (38.7-73.9); Platelet Count 366 T/CUMM (130-400); Red Blood Count 2.42 MC/CUMM (3.8-5.5); Red Cell Distribution Width 14.1 % (9.3-17.3); White Blood Count 8.8 T/CUMM (4-12)
[2020-11-03 05:49] LABS: Alanine Aminotransferase 17 U/L (16-61); Albumin 1.8 G/DL (3.4-5.0); Alkaline Phosphatase 91 U/L (45-117); Aspartate Amino Transferase 8 U/L (0-37); Bilirubin,Total < 0.39 MG/DL (0.2-1.0); Blood Urea Nitrogen 10 MG/DL (7-18); Calcium 8.8 MG/DL (8.5-10.1); Carbon Dioxide 31 MMOL/L (21-32); Estimated Glom Filtration Rate 126 ML/MIN; Glucose 97 MG/DL (74-106); Osmolality,Calculated 268.1 MOS/KG (273-304); Potassium 4.5 MMOL/L (3.5-5.1); Sodium 135 MMOL/L (136-145); Total Protein 6.5 G/DL (6.4-8.2)
[2020-11-03 05:51] LABS: INR 1.3; PT Patient Result 13.7 SECS (9.8-11.9)
[2020-11-03] MEDS: PANTOPRAZOLE 40 MG TABLET PO SCH ×2 (06:24→17:59)
[2020-11-03] MEDS: FAMOTIDINE 20 MG TABLET PO SCH ×2 (08:51→21:54)
[2020-11-03] MEDS: FLUTICASONE 50 MCG NASAL SPRAY 16 GM BOTTLE BOTH NARES SCH (08:51)
[2020-11-03] MEDS: DOCUSATE SODIUM 100 MG CAPSULE PO SCH ×2 (08:51→21:55)
[2020-11-03] MEDS: MULTIVITAMIN (BEROCCA) TABLET PO SCH (08:51)
[2020-11-03] MEDS: FOLIC ACID 1 MG TABLET PO SCH (08:51)
[2020-11-03] MEDS: LORATADINE 10 MG TABLET PO SCH (08:51)
[2020-11-03] MEDS: THIAMINE 100 MG TABLET PO SCH (08:51)
[2020-11-03] MEDS: WARFARIN 10 MG TABLET PO SCH (08:51)
[2020-11-03] MEDS: BENZONATATE 100 MG CAPSULE PO SCH ×2 (08:51→21:54)
[2020-11-03] MEDS: busPIRone 5 MG TABLET PO SCH ×3 (08:52→21:55)
[2020-11-03] MEDS: DESITIN 4OZ/NYSTATIN 15 GRAM MIXTURE PASTE TOP SCH ×2 (08:52→21:55)
[2020-11-03] MEDS: ENOXAPARIN 80 MG/0.8 ML SYRINGE SUBCUT SCH ×2 (08:53→21:54)
[2020-11-03] MEDS: POLYETHYLENE GLYCOL POWDER 17 GM PACK PO SCH (08:53)
[2020-11-03] MEDS: LACTULOSE 20 GM/30 ML UDCUP PO SCH (08:53)
[2020-11-03] MEDS: MELATONIN 3 MG TABLET PO PRN (21:54)
[2020-11-04] MEDS: ALBUTEROL 2.5 MG/3 ML NEB RESP TX SCH ×4 (01:26→19:33)
[2020-11-04 06:01] LABS: INR 1.7; PT Patient Result 17.3 SECS (9.8-11.9)
[2020-11-04] MEDS: PANTOPRAZOLE 40 MG TABLET PO SCH ×2 (06:52→17:32)
[2020-11-04] MEDS: WARFARIN 10 MG TABLET PO SCH (09:01)
[2020-11-04] MEDS: LORATADINE 10 MG TABLET PO SCH (09:01)
[2020-11-04] MEDS: MULTIVITAMIN (BEROCCA) TABLET PO SCH (09:01)
[2020-11-04] MEDS: DOCUSATE SODIUM 100 MG CAPSULE PO SCH ×2 (09:01→20:43)
[2020-11-04] MEDS: THIAMINE 100 MG TABLET PO SCH (09:02)
[2020-11-04] MEDS: FAMOTIDINE 20 MG TABLET PO SCH ×2 (09:02→20:44)
[2020-11-04] MEDS: busPIRone 5 MG TABLET PO SCH ×3 (09:02→20:43)
[2020-11-04] MEDS: BENZONATATE 100 MG CAPSULE PO SCH ×2 (09:02→20:44)
[2020-11-04] MEDS: FOLIC ACID 1 MG TABLET PO SCH (09:03)
[2020-11-04] MEDS: DESITIN 4OZ/NYSTATIN 15 GRAM MIXTURE PASTE TOP SCH ×2 (09:03→20:44)
[2020-11-04] MEDS: ENOXAPARIN 80 MG/0.8 ML SYRINGE SUBCUT SCH ×2 (09:03→20:43)
[2020-11-04] MEDS: FLUTICASONE 50 MCG NASAL SPRAY 16 GM BOTTLE BOTH NARES SCH (09:03)
[2020-11-04] MEDS: POLYETHYLENE GLYCOL POWDER 17 GM PACK PO SCH (09:16)
[2020-11-04] MEDS: LACTULOSE 20 GM/30 ML UDCUP PO SCH (09:16)
[2020-11-04] MEDS: MELATONIN 3 MG TABLET PO PRN (20:43)
[2020-11-05] MEDS: ALBUTEROL 2.5 MG/3 ML NEB RESP TX SCH ×2 (03:14→07:23)
[2020-11-05] MEDS: PANTOPRAZOLE 40 MG TABLET PO SCH (05:57)
[2020-11-05 07:21] LABS: INR 2.1; PT Patient Result 21.8 SECS (9.8-11.9)
[2020-11-05 07:37] VITALS: BP 145/78
[2020-11-05] MEDS: DOCUSATE SODIUM 100 MG CAPSULE PO SCH (08:39)
[2020-11-05] MEDS: FAMOTIDINE 20 MG TABLET PO SCH (08:39)
[2020-11-05] MEDS: MULTIVITAMIN (BEROCCA) TABLET PO SCH (08:39)
[2020-11-05] MEDS: LORATADINE 10 MG TABLET PO SCH (08:39)
[2020-11-05] MEDS: BENZONATATE 100 MG CAPSULE PO SCH (08:39)
[2020-11-05] MEDS: THIAMINE 100 MG TABLET PO SCH (08:40)
[2020-11-05] MEDS: busPIRone 5 MG TABLET PO SCH (08:40)
[2020-11-05] MEDS: WARFARIN 10 MG TABLET PO SCH (08:40)
[2020-11-05] MEDS: DESITIN 4OZ/NYSTATIN 15 GRAM MIXTURE PASTE TOP SCH (08:40)
[2020-11-05] MEDS: FLUTICASONE 50 MCG NASAL SPRAY 16 GM BOTTLE BOTH NARES SCH (08:40)
[2020-11-05] MEDS: LACTULOSE 20 GM/30 ML UDCUP PO SCH (08:41)
[2020-11-05] MEDS: POLYETHYLENE GLYCOL POWDER 17 GM PACK PO SCH (08:41)
[2020-11-05] MEDS: FOLIC ACID 1 MG TABLET PO SCH (08:41)
[2020-11-05] MEDS: ENOXAPARIN 80 MG/0.8 ML SYRINGE SUBCUT SCH (08:41)
== END 2020-11-05 12:29 | disposition home or self-care (01) | DRG 177 ==
LOC: EDSEX → EDBD → EDUNIT# → N.EDINP 09:43 → N.ED 09:43 → SUATTDRO 12:54 → N.2E 14:38 → N.5E 10-16 16:31
PROVIDERS: ADMIT Internal Medicine; ATTEND Internal Medicine Geriatric Medicine
PROC: IRTHORA (2020-10-29 16:10)

== ENCOUNTER 2022-04-24 11:48 | Observation (INO) ==
[2022-04-24] MEDS ORDERED: SODIUM CHLORIDE 0.9% 1,000 ML IV STA (12:35)
[2022-04-24] MEDS ORDERED: THIAMINE INJ 100 MG, FOLIC ACID INJ 1 MG, MAGNESIUM SULF INJ 2 GM, MULTIVITAMIN INJ 10 ... IV ONE (12:37)
[2022-04-24 12:49] LABS: Basophils % 0.2 % (0.0-0.8); Eosinophils % 0.6 % (0.00-10.9); Hematocrit 43.6 VOL% (42.0-52.0); Hemoglobin 14.9 GM/DL (14.0-18.0); Immature Granulocytes % 0.4 %; Immature Granulocytes Absolute 0.02 #; Lymphocytes # 1.7 10*3/uL (1.4-4.0); Lymphocytes % 31.4 % (21.2-54.2); Mean Corpuscular HGB Conc 34.2 GM/DL (32-36); Mean Corpuscular Volume 99.8 FL (87-102); Monocytes # 0.2 10*3/uL (0.11-0.8); Monocytes % 3.4 % (1.7-12.7); Platelet Count 226 T/CUMM (130-400); Red Blood Count 4.37 MC/CUMM (3.8-5.5); Red Cell Distribution Width 12.3 % (9.3-17.3); White Blood Count 5.3 T/CUMM (4-12)
[2022-04-24 13:13] LABS: Acetaminophen < 2.0 UG/ML (10-30); Salicylate < 2.8 MG/DL (2.8-20)
[2022-04-24 13:14] LABS: Albumin 3.8 G/DL (3.4-5.0); Bilirubin,Total 0.8 MG/DL (0.20-1.00); Osmolality,Calculated 272.8 MOS/KG (273-304); Potassium 4.1 MMOL/L (3.5-5.1); Total Protein 7.7 G/DL (6.4-8.2)
[2022-04-24 14:39] LABS: RBC,Urine 1 /HPF (0-4)
[2022-04-24 14:40] LABS: Bilirubin,Urine Negative (Negative); Blood, Urine Negative (Negative); Glucose,Urine (UA) Negative (Negative); Ketones,Urine Negative (Negative); Nitrite,Urine Negative (Negative); Protein,Urine Negative (Negative); Urine Appearance Clear (Clear); Urine Color Yellow (Yellow); Urine Specific Gravity < 1.005 (1.001-1.035); Urine Urobilinogen 0.2 eU/dL (<2.0)
[2022-04-24 14:49] LABS: Barbiturates Screen,Urine Negative (Negative); Benzodiazepines Screen,Urine Negative (Negative); Cannabinoid Screen,Urine Negative (Negative); Opiate Screen,Urine Negative (Negative); Phencyclidine Screen,Urine Negative (Negative)
[2022-04-24] MEDS ORDERED: DEXTROSE 10% 250 ML BAG IV PRN (16:32)
[2022-04-24] MEDS ORDERED: hydrALAZINE 20 MG/1 ML VIAL IV PRN (16:32)
[2022-04-24] MEDS ORDERED: ACETAMINOPHEN 325 MG TABLET PO PRN (16:32)
[2022-04-24] MEDS ORDERED: GLUCAGON 1 MG VIAL IM PRN (16:32)
[2022-04-24] MEDS ORDERED: ONDANSETRON 4 MG/2 ML VIAL IV PRN (16:32)
[2022-04-24] MEDS ORDERED: HydrOXYzine PAMOATE 25 MG CAPSULE PO PRN (16:35)
[2022-04-24] MEDS: LORazepam 1 MG TABLET PO PRN ×2 (17:59→21:12)
[2022-04-24] MEDS: SODIUM CHLORIDE 0.9% 1,000 ML IV SCH (18:20)
[2022-04-24] MEDS: ENOXAPARIN 40 MG/0.4 ML SYRINGE SUBCUT SCH (21:07)
[2022-04-25 06:38] LABS: Basophils % 0.3 % (0.0-0.8); Eosinophils # 0.1 10*3/uL (0.0-0.87); Eosinophils % 1.6 % (0.00-10.9); Hematocrit 35.9 VOL% (42.0-52.0); Hemoglobin 12.1 GM/DL (14.0-18.0); Immature Granulocytes % 0.5 %; Immature Granulocytes Absolute 0.02 #; Lymphocytes # 1.5 10*3/uL (1.4-4.0); Lymphocytes % 39.7 % (21.2-54.2); Mean Corpuscular HGB Conc 33.7 GM/DL (32-36); Mean Corpuscular Volume 101.7 FL (87-102); Mean Platelet Volume 10.9 FL (9.6-12.0); Monocytes # 0.1 10*3/uL (0.11-0.8); Neutrophils % 54.9 % (38.7-73.9); Platelet Count 150 T/CUMM (130-400); Red Blood Count 3.53 MC/CUMM (3.8-5.5); Red Cell Distribution Width 12.3 % (9.3-17.3); White Blood Count 3.7 T/CUMM (4-12)
[2022-04-25 06:59] LABS: Calcium 8.2 MG/DL (8.5-10.1); Osmolality,Calculated 277.5 MOS/KG (273-304); Potassium 4.1 MMOL/L (3.5-5.1)
[2022-04-25 07:45] LABS: Eosinophils 1 % (0-10); Lymphocytes 37 % (20-55); Platelet Estimate Adequate; Total Cells Counted 100
[2022-04-25 07:50] LABS: Folate 13.92 NG/ML (5.38-24.0)
[2022-04-25] MEDS: LORazepam 1 MG TABLET PO PRN ×2 (08:57→18:07)
[2022-04-25] MEDS: SODIUM CHLORIDE 0.9% 1,000 ML IV SCH (08:58)
[2022-04-25] MEDS ORDERED: MULTIVITAMIN (CENTRUM) TABLET PO SCH (09:00)
[2022-04-25] MEDS ORDERED: PANTOPRAZOLE 40 MG TABLET PO SCH (09:00)
[2022-04-25] MEDS ORDERED: THIAMINE 100 MG TABLET PO SCH (09:00)
[2022-04-25] MEDS ORDERED: FOLIC ACID 1 MG TABLET PO SCH (09:00)
[2022-04-25] MEDS ORDERED: lisinopriL 10 MG TABLET PO SCH (12:30)
[2022-04-25] MEDS: ENOXAPARIN 40 MG/0.4 ML SYRINGE SUBCUT SCH (20:09)
[2022-04-25 20:19] VITALS: BP 151/98
== END 2022-04-25 21:35 ==
LOC: SUATTDRO → EDBD → EDUNIT# → N.EDINP 11:48 → N.ED 11:48 → SUATTDRO 16:32 → N.5E 17:45
PROVIDERS: ADMIT Emergency Medicine; ATTEND Internal Medicine